=== PATIENT | female | born 1960 | race Caucasian/White ===

== ENCOUNTER 2021-02-14 11:30 | Inpatient (IN) | payer SELFPAY ==
[2021-02-14 12:04] LABS: Absolute Lymphocytes (CBC) 1.7 K/uL (0.7-4.9); Basophils % 0.9 % (0-1.3); Hematocrit 41.4 % (36.0-45.0); Lymphocytes % 17.4 % (15.3-44.8); MPV 9.9 fL (7.6-11.3); RBC Red Blood Cell Count 4.84 M/uL (3.86-4.86)
[2021-02-14 12:18] LABS: Protime INR 1.03
[2021-02-14 12:31] LABS: Urine Blood Trace-intact (Negative); Urine Glucose Negative (Negative); Urine Protein Negative (Negative); Urine Specific Gravity 1.015 (1.005-1.030)
[2021-02-14 12:33] LABS: BUN Blood Urea Nitrogen 14 mg/dL (7-18); Bicarbonate 22 mmol/L (21-32); Glucose Level 252 mg/dL (74-106); Potassium 3.9 mmol/L (3.5-5.1); Sodium Level 138 mmol/L (136-145); Troponin (Emerg Dept Use Only) < 0.02 ng/mL (0.0-0.045)
--- NOTE | 2021-02-14 12:51 | RAD REPORT ---
EXAM DESCRIPTION: CT - Ct Stroke Brain Wo Cont - 02/14/2021 12:39 pm CLINICAL HISTORY: Slurred speech;Numbness COMPARISON: No comparisonsNo comparisons TECHNIQUE: Axial 5 millimeter thick images of the head were obtained without IV contrast. All CT scans are performed using dose optimization technique as appropriate and may include automated exposure control or mA/KV adjustment according to patient size. FINDINGS: No intracranial hemorrhage, mass, or cerebral edema. No acute cortical based infarction id entified. No cortical edema or sulcal effacement. No extra-axial fluid collections. Velasquez matter-whit e matter differentiation is preserved.Patchy areas of diminished attenuation are seen in the cerebral white matter. An 8 millimeter area of CSF attenuation is present near the genu internal capsule. Thi s has the appearance of an old infarction. No significant atrophy changes present. Ventricles are nor mal in size. Visualized portions of the mastoid air cells, paranasal sinuses, and orbits are unremarkable. Findings telephoned to doctor Patriica 12:47 p.m. IMPRESSION: No intracranial hemorrhage identified. 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 Patchy chronic ischemic changes are seen in cerebral white matter.
[2021-02-14 12:53] LABS: Barbiturates NEGATIVE (NEGATIVE); Benzodiazepines NEGATIVE (NEGATIVE); Cocaine NEGATIVE (NEGATIVE); METHAMPHETAM NEGATIVE (NEGATIVE); Methadone NEGATIVE (NEGATIVE); Opiates NEGATIVE (NEGATIVE); Phencyclidine NEGATIVE (NEGATIVE); THC Cannibis NEGATIVE (NEGATIVE)
--- NOTE | 2021-02-14 12:53 | RAD REPORT ---
EXAM DESCRIPTION: CT - Head angio - 02/14/2021 12:39 pm CLINICAL HISTORY: SLURRED SPEECH TECHNIQUE: During dynamic enhancement using nonionic IV contrast, axial 1 millimeter thick images of the head were obtained. Sagittal and axial reconstruction images were generated using MIP technique and reviewed. All CT scans are performed using dose optimization technique as appropriate and may include automated exposure control or mA/KV adjustment according to patient size. COMPARISON: CT head same date FINDINGS: No aneurysm or vascular malformation identified. Major venous sinuses are patent. No stenosis, named branch occlusion, vasculitis or other significant vascular finding identifiable. Patient does have calcifications in the internal carotid artery ribeiro. This is not seen is causing a significant luminal narrowing. IMPRESSION: Negative CT angio head examination for acute significant finding.
--- NOTE | 2021-02-14 12:57 | RAD REPORT ---
EXAM DESCRIPTION: RAD - Chest Single View - 02/14/2021 12:18 pm CLINICAL HISTORY: slurred speech, Stroke protocol chest film COMPARISON: July 2017 TECHNIQUE: AP portable chest image was obtained 02/14/2021 12:18 pm . FINDINGS: Lungs are clear. Heart and vasculature are normal. No measurable pleural effusion and no p neumothorax. No acute bony abnormality seen. No acute aortic findings suspected. IMPRESSION: No acute cardiopulmonary process. No significant change from comparison study.
--- NOTE | 2021-02-14 13:06 | ER ---
Nurse's Notes [facility] Name: Liz Max Age: 60 yrs Sex: Female : 1960 Arrival Date: 02/14/2021 Time: 11:36 Bed 7 Private MD: Diagnosis: Paresthesia of skin;Altered mental status, unspecified;Urinary tract infection, site not specified Presentation: 02/14 11:36 Chief complaint: EMS states: Pt c/o difficulty walking, weakness, tingling and numbness ph all over, and slurred speech w/ sudden onset at approx 10 pm last night. Upon arrival to ED pt noted to be anxious, restless, able to move arms and legs, speech mildly slurred. 20 G IV to RFA. Coronavirus screen: Client denies travel out of the [place] in the last 14 days. At this time, the client does not indicate any symptoms associated with coronavirus-19. Ebola Screen: No symptoms or risks identified at this time. No acute neurological deficit is noted. The patients blood glucose was checked before arriving to the hospital and was found to be normal. Initial Sepsis Screen: Does the patient meet any 2 criteria? No. Patient's initial sepsis screen is negative. Does the patient have a suspected source of infection? No. Patient's initial sepsis screen is negative. Risk Assessment: Do you want to hurt yourself or someone else? Patient reports no desire to harm self or others. Onset of symptoms was February 14, 2021. 11:36 Method Of Arrival: EMS: [facility] 11:36 Acuity: ANTON 2 ph Stroke Activation: Symptom onset > 6 hours Physician: Stroke Attending; Name: ; Notified At: ; Arrived At: Physician: Chief Stroke Resident; Name: ; Notified At: ; Arrived At: Physician: Stroke Resident; Name: ; Notified At: ; Arrived At: Physician: ED Attending; Name: ; Notified At: ; Arrived At: Physician: ED Resident; Name: ; Notified At: ; Arrived At: Historical: - Allergies: 11:43 No Known Allergies; ph - Home Meds: 11:43 metformin 1,000 mg Oral TG24 1 tab 2 times per day [Active]; tramadol 50 mg Oral tab 1 ph tab every 6 hours [Active]; Hydrochlorothiazide Oral [Active]; Potassium Chloride Oral [Active]; - PMHx: 11:43 Diabetes - NIDDM; Chronic pain; Hypertension; ph - PSHx: 11:43 Hysterectomy; Lithotripsy; ph - Immunization history:: Adult Immunizations unknown. - Family history:: not pertinent. - Social history:: Smoking status: Patient reports the use of cigarette tobacco products, denies chronic smoking, but will smoke occasionally. - Hospitalizations: : No recent hospitalization is reported. Screenin:47 Abuse screen: Denies threats or abuse. Denies injuries from another. Nutritional ph screening: No deficits noted. Tuberculosis screening: No symptoms or risk factors identified. Fall Risk None identified. Assessment: 11:45 VAN Scoring: Arm Drift: Patients demonstrates NO arm weakness. Patient is VAN Negative. ph 12:00 General: Appears in no apparent distress. comfortable, Behavior is cooperative, ph anxious, fussy, restless, Denies fever, feeling ill. Pain: Complains of pain in right low back, reports that pain is chronic. Neuro: Level of Consciousness is awake, alert, obeys commands, Oriented to person, place, time, situation, C Engineer are equal bilaterally Moves all extremities. Gait is unsteady, Speech is slurred, Facial symmetry appears normal, Facial symmetry: tongue is midline, Pupils are PERRLA, Intact Reports numbness in right arm, left arm, right leg and left leg paresthesias in right arm, left arm, right leg and left leg weakness in "all over". Cardiovascular: Capillary refill < 3 seconds in bilateral fingers Patient's skin is warm and dry. Respiratory: Airway is patent Respiratory effort is even, unlabored. GI: No signs and/or symptoms were reported involving the gastrointestinal system. : No signs and/or symptoms were reported regarding the genitourinary system. Derm: Skin is intact, Skin is pink, warm \\T\\ dry. Musculoskeletal: Circulation, motion, and sensation intact. Range of motion: intact in all extremities. 12:15 Patient has been NPO before screening. The patient is alert, and able to follow ph commands. The patient does not exhibit slurred or garbled speech. The patient is not exhibiting difficulty speaking. The patient does not exhibit difficulty understanding words. The patient is able to swallow own secretions with no drooling or need for suction. Patient tolerated one teaspoon of water. No drooling, immediate coughing, gurgling, or clearing of the throat was noted. The patient tolerated 90mL of water. No drooling, immediate coughing, gurgling, or clearing of the throat was noted. The patient passed the bedside swallow screening. Oral medications may be given as ordered. Contact Physician for further diet orders. 12:15 Provider notified of bedside swallow screening results: Narciso Gomez MD. T-PA (Activase) ph Screening: Contraindications: Patient reports onset of signs and symptoms of stroke greater than 6 hours ago:. 13:41 Reassessment: Patient appears in no apparent distress at this time. Patient and/or ph family updated on plan of care and expected duration. Pain level reassessed. Dr Styles at bedside to speak w/ pt and , pt's speech clearer, does not appear to be having difficulty pronouncing words, noted to be moving all extremities w/ no difficulty, assisted pt to restroom, pt unsteady when initially standing but able to ambulate to toilet w/ no difficulty. 13:48 Reassessment: While speaking w/ hospitalist pt reports having multiple stressors in her ph life currently, speech remains clear, pt A\\T\\O x 4 at this time. 15:54 Reassessment: Patient appears in no apparent distress at this time. Patient and/or ph family updated on plan of care and expected duration. Pain level reassessed. Patient is alert, oriented x 3, equal unlabored respirations, skin warm/dry/pink. Pt sitting up in bed, eating burger, tolerating well, at bedside, awaiting room assignment. 16:49 Reassessment: Patient appears in no apparent distress at this time. Patient and/or ph family updated on plan of care and expected duration. Pain level reassessed. Patient is alert, oriented x 3, equal unlabored respirations, skin warm/dry/pink. Vital Signs: 11:36 BP 148 / 102; Pulse 94; Resp 18; Pulse Ox 99% on R/A; ph 12:09 Temp 97.4(TE); Weight 70.31 kg; Height 5 ft. 2 in. (157.48 cm); ph 13:00 BP 141 / 103; Pulse 87; Resp 18; Pulse Ox 99% on R/A; ph 14:23 BP 139 / 113; Pulse 78; Resp 18; Pulse Ox 98% on R/A; ph 15:30 BP 142 / 107; Pulse 75; Resp 18; Pulse Ox 98% on R/A; ph 16:17 BP 132 / 101; Pulse 76; Resp 18; Temp 97.9; Pulse Ox 98% on R/A; ph 12:09 Body Mass Index 28.35 (70.31 kg, 157.48 cm) ph NIH Stroke Scale Scores: 11:45 NIHSS Score: 0 ph ED Course: 11:36 Patient arrived in ED. ph 11:41 Triage completed. ph 11:41 Arm band placed on Patient placed in an exam room, on a stretcher, on monitoring and evaluation advisor, ph on pulse oximetry. 11:42 Narciso Gomez MD is Attending Physician. rn 11:49 Donna Rojas RN is Primary Nurse. ph 12:00 Patient has correct armband on for positive identification. Bed in low position. Call ph light in reach. Side rails up X2. phototypesetting equipment monitor on. Pulse ox on. NIBP on. Door closed. Noise minimized. Warm blanket given. 12:00 Maintain EMS IV. Dressing intact. Good blood return noted. Site clean \\T\\ dry. Gauge \\T\\ ph site: 2 RFA. IV is patent, with fluids infusing freely, with good blood return, Flushed right forearm with 5 ml normal saline. 12:18 Stroke CXR 1 View In Process Unspecified. EDMS 12:39 CT Stroke Brain w/o Contrast In Process Unspecified. EDMS 12:39 CT Head Angio In Process Unspecified. EDMS 13:05 Mehdi Styles DO is Hospitalizing Provider. rn 14:23 No provider procedures requiring assistance completed. Patient admitted, IV remains in ph place. Administered Medications: 15:30 Drug: Rocephin (cefTRIAXone) 1 grams Route: IV; Rate: calculated rate; Site: right ph forearm; 16:00 Follow up: Response: No adverse reaction; IV Status: Completed infusion ph Outcome: 13:05 Decision to Hospitalize by Provider. rn 16:49 Admitted to Med/surg accompanied by tech, family with patient, via wheelchair, room ph 429, with chart, Report called to CARILTOS Kaur 16:49 Condition: good 16:49 Instructed on the need for admit. 16:51 Patient left the ED. ph NIH Stroke Scale - NIH Stroke Score Date: 02/14/2021 Time: 11:45 Total Score = 0 1a. Level of Consciousness (LOC) - 0(Alert) 1b. Level of Consciousness (LOC) (Year \\T\\ Age) - 0(Both) 1c. LOC Commands (Open \\T\\ Closes Eyes/Chemical Plant Manager) - 0(Both) 2. Best Gaze (Lateral Gaze Paresis) - 0(Normal) 3. Visual Field Loss - 0(No visual loss) 4. Facial Palsy - 0(Normal) 5a. Left Arm: Motor (10-second hold) - 0(No drift) 5b. Right Arm: Motor (10-second hold) - 0(No drift) 6a. Left Leg: Motor (5-second hold - always test supine) - 0(No drift) 6b. Right Leg: Motor (5-second hold - always test supine) - 0(No drift) 7. Limb Ataxia (finger/nose \\T\\ heel/bowen - test with eyes open) - 0(Absent) 8. Sensory Loss (pinprick arms/legs/face) - 0(Normal) 9. Best Language: Aphasia (description/naming/reading) - 0(No aphasia) 10. Dysarthria (speech clarity - read or repeat words) - 0(Normal) 11. Extinction and Inattention (visual/tactile/auditory/spatial/personal) - 0(No abnormality) Initials: ph Signatures: Dispatcher [employer] Narciso Scott MD MD rn Hall, Patricia, RN RN ph Corrections: (The following items were deleted from the chart) 11:49 11:36 Pulse 94bpm; Resp 18bpm; Pulse Ox 99% RA; ph ph
--- NOTE | 2021-02-14 13:07 | EDPHYS ---
Physician Documentation [facility] Name: Liz Max Age: 60 yrs Sex: Female : 1960 Arrival Date: 02/14/2021 Time: 11:36 Bed 7 Private MD: ED Physician Narciso Gomez HPI: 02/14 12:31 This 60 yrs old Female presents to ER via EMS with complaints of General rn Weakness, Slurred Speech. 12:31 The patient presents to the emergency department with a speech or higher order brain rn function problem, paresthesias of the left lower extremity, left upper extremity. Onset: The symptoms/episode began/occurred last night. Context: occurred at home, occurred while the patient was at rest. Associated signs and symptoms: Pertinent positives: headache, paresthesias, weakness, Pertinent negatives: fever, neck stiffness, seizure. Severity of symptoms: At their worst the symptoms were moderate in the emergency department the symptoms are unchanged. The patient has not experienced similar symptoms in the past. The patient has not recently seen a physician. Reports last night around 10 PM was coloring, noticed whole body became numb, noticed difficulty speaking clearly, and "couldn't control body". No head injury or trauma. No recent medication changes, states has never happened before, but is not acting herself. Pt very frustrated and obvious speech problem. . Historical: - Allergies: 11:43 No Known Allergies; ph - Home Meds: 11:43 metformin 1,000 mg Oral TG24 1 tab 2 times per day [Active]; tramadol 50 mg Oral tab 1 ph tab every 6 hours [Active]; Hydrochlorothiazide Oral [Active]; Potassium Chloride Oral [Active]; - PMHx: 11:43 Diabetes - NIDDM; Chronic pain; Hypertension; ph - PSHx: 11:43 Hysterectomy; Lithotripsy; ph - Immunization history:: Adult Immunizations unknown. - Family history:: not pertinent. - Social history:: Smoking status: Patient reports the use of cigarette tobacco products, denies chronic smoking, but will smoke occasionally. - Hospitalizations: : No recent hospitalization is reported. ROS: 12:31 Constitutional: Negative for fever, chills, and weight loss, Eyes: Negative for injury, rn pain, redness, and discharge, Neck: Negative for injury, pain, and swelling, Cardiovascular: Negative for chest pain, palpitations, and edema, Respiratory: Negative for shortness of breath, cough, wheezing, and pleuritic chest pain, Abdomen/GI: Negative for abdominal pain, nausea, vomiting, diarrhea, and constipation, Back: Negative for injury : Negative for injury, bleeding, discharge, and swelling, MS/Extremity: Negative for injury and deformity, Skin: Negative for injury, rash, and discoloration, Neuro: Negative for seizure Exam: 12:31 Constitutional: This is a well developed, well nourished patient who is awake, alert, rn tearful, sitting upright with legs crossed, flailing her body around. Head/Face: Normocephalic, atraumatic. Eyes: Periorbital areas with no swelling, redness, or edema. Cardiovascular: Regular rate and rhythm. No pulse deficits. Respiratory: No increased work of breathing, no retractions or nasal flaring. Abdomen/GI: soft, non-tender Skin: Warm, dry MS/ Extremity: Pulses equal, no cyanosis. Neuro: Awake and alert, GCS 15, oriented to person, place, time, and situation. Cranial nerves II-XII grossly intact. Motor strength 5/5 in all extremities. + decreased sensation to soft touch and sharp prick left face/left arm/left leg. Vital Signs: 11:36 BP 148 / 102; Pulse 94; Resp 18; Pulse Ox 99% on R/A; ph 12:09 Temp 97.4(TE); Weight 70.31 kg; Height 5 ft. 2 in. (157.48 cm); ph 13:00 BP 141 / 103; Pulse 87; Resp 18; Pulse Ox 99% on R/A; ph 14:23 BP 139 / 113; Pulse 78; Resp 18; Pulse Ox 98% on R/A; ph 15:30 BP 142 / 107; Pulse 75; Resp 18; Pulse Ox 98% on R/A; ph 16:17 BP 132 / 101; Pulse 76; Resp 18; Temp 97.9; Pulse Ox 98% on R/A; ph 12:09 Body Mass Index 28.35 (70.31 kg, 157.48 cm) ph NIH Stroke Scale Scores: 11:45 NIHSS Score: 0 ph MDM: 11:42 Patient medically screened. rn 13:04 ED course: Pt revisited after neg ct/ct angio, clear speech, now states right side of rn body is numb and tingling. Does not seem to be CVA with resolving speech and paresthesias jumping side to side, at some times, when distracted, body movements and speech normal without deficit. + UTI, will treat and admit to Dr. Styles with neuro consult. . 02/14 11:44 Order name: UDS; Complete Time: 12:54 02/14 11:44 Order name: Troponin (emerg Dept Use Only); Complete Time: 12:54 02/14 11:44 Order name: Basic Metabolic Panel; Complete Time: 12:54 02/14 11:44 Order name: CBC with Diff; Complete Time: 12:54 02/14 11:44 Order name: Protime (+inr); Complete Time: 12:54 02/14 11:44 Order name: Ptt, Activated; Complete Time: 12:54 02/14 11:44 Order name: CT Stroke Brain w/o Contrast; Complete Time: 12:54 02/14 11:44 Order name: Stroke CXR 1 View; Complete Time: 13:06 02/14 11:44 Order name: CT Head Angio; Complete Time: 12:54 02/14 12:26 Order name: CREATININE WHOLE BLOOD; Complete Time: 12:54 [facility] 02/14 12:30 Order name: Urine Dipstick-Ancillary; Complete Time: 12:54 [facility] 02/14 13:53 Order name: COVID-19 : Document "Date of Symptom Onset" if Symptomatic. aa5 02/14 15:42 Order name: SARS-COV-2 RT PCR EDDC 02/14 11:44 Order name: EKG; Complete Time: 11:45 rn 02/14 11:44 Order name: Accucheck; Complete Time: 12:34 rn 02/14 11:44 Order name: Cardiac monitoring; Complete Time: 12:34 02/14 11:44 Order name: EKG - Nurse/Tech; Complete Time: 14:24 02/14 11:44 Order name: IV Saline Lock; Complete Time: 12:33 rn 02/14 11:44 Order name: Labs collected and sent; Complete Time: 12:33 rn 02/14 11:44 Order name: NPO; Complete Time: 12:33 rn 06/12 11:44 Order name: O2 Per Protocol; Complete Time: 12:33 rn 02/14 11:44 Order name: O2 Sat Monitoring; Complete Time: 12:33 rn 02/14 11:44 Order name: Stroke Swallow Screen; Complete Time: 12:33 rn Administered Medications: 15:30 Drug: Rocephin (cefTRIAXone) 1 grams Route: IV; Rate: calculated rate; Site: right ph forearm; 16:00 Follow up: Response: No adverse reaction; IV Status: Completed infusion ph Disposition: 02/14/21 13:05 Hospitalization ordered by Mehdi Styles for Observation. Preliminary diagnosis are Paresthesia of skin, Altered mental status, unspecified, Urinary tract infection, site not specified. - Bed requested for Telemetry/MedSurg (observation). - Status is Observation. ph - Condition is Stable. - Problem is new. - Symptoms have improved. NIH Stroke Scale - NIH Stroke Score Date: 02/14/2021 Time: 11:45 Total Score = 0 1a. Level of Consciousness (LOC) - 0(Alert) 1b. Level of Consciousness (LOC) (Year \\T\\ Age) - 0(Both) 1c. LOC Commands (Open \\T\\ Closes Eyes/First Breaker Feeder) - 0(Both) 2. Best Gaze (Lateral Gaze Paresis) - 0(Normal) 3. Visual Field Loss - 0(No visual loss) 4. Facial Palsy - 0(Normal) 5a. Left Arm: Motor (10-second hold) - 0(No drift) 5b. Right Arm: Motor (10-second hold) - 0(No drift) 6a. Left Leg: Motor (5-second hold - always test supine) - 0(No drift) 6b. Right Leg: Motor (5-second hold - always test supine) - 0(No drift) 7. Limb Ataxia (finger/nose \\T\\ heel/bowen - test with eyes open) - 0(Absent) 8. Sensory Loss (pinprick arms/legs/face) - 0(Normal) 9. Best Language: Aphasia (description/naming/reading) - 0(No aphasia) 10. Dysarthria (speech clarity - read or repeat words) - 0(Normal) 11. Extinction and Inattention (visual/tactile/auditory/spatial/personal) - 0(No abnormality) Initials: ph Signatures: Dispatcher [employer] EDMS Narciso Gomez MD MD rn Hall, Patricia, RN RN ph Peggy Simms Corrections: (The following items were deleted from the chart) 14:34 13:54 CORONAVIRUS ordered. [facility] 16:10 13:05 Hospitalization Ordered by Mehdi Styles DO for Observation. Preliminary eb diagnosis is Paresthesia of skin; Altered mental status, unspecified; Urinary tract infection, site not specified. Bed requested for Telemetry/MedSurg (observation). Status is Observation. Condition is Stable. Problem is new. Symptoms have improved. rn 16:51 16:10 02/14/2021 13:05 Hospitalization Ordered by Mehdi Styles DO for ph Observation. Preliminary diagnosis is Paresthesia of skin; Altered mental status, unspecified; Urinary tract infection, site not specified. Bed requested for Telemetry/MedSurg (observation). Status is Observation. Condition is Stable. Problem is new. Symptoms have improved. eb
--- NOTE | 2021-02-14 14:17 | P.HP ---
Certification for Inpatient Patient admitted to: Observation With expected LOS: <2 Midnights Patient will require the following post-hospital care: None Practitioner: I am a practitioner with admitting privileges, knowledge of patient current condition, hospital course, and medical plan of care. Services: Services provided to patient in accordance with Admission requirements found in Title 42 Section 412.3 of the Code of Federal Regulations Patient History Date of Service: 02/14/21 Primary Care Provider: Dr. Hannah([place], [place]) Reason for admission: AMS History of Present Illness: 60 yo female with history of hypertension, diabetes and chronic pain. Patient presented to emergency room with altered mental status changes and all other complaints including muscle weakness, numbness, and expressive aphasia. Patient reports that she was doing some adult coloring last night. When she got up to go the bathroom she felt very weak. She felt like a "puppet" with her movements. She fell very floppy. She reported some weakness to the right side. She was able to get back to bed after that. She did not sleep well all night. She has not been getting adequate rest as well. Then this morning she reported some further weakness, episodes of expressive aphasia, numbness that would come and go, and mild headache. EMS was called to further evaluate. Patient denied any chest pain, shortness of breath, fever, chills. In the ER patient was evaluated. Initial lab showed normal white count of 9.6, hemoglobin 14. Platelet count 214. Sodium 138, potassium 3.9 care. Being of 14, creatinine 1.03 with a GFR 55. Glucose 252. Troponin negative. Urinalysis was positive for UTI. CT angiogram of the head unremarkable. CT without contrast showed no acute intracranial hemorrhage. Small old infarct near the genu internal capsule on the left side. Patchy chronic ischemic changes were noted in the cerebral white matter. ER reports patient had some episodes of numbness, expressive aphasia, and floppiness. Episodes lasted for seconds and resolved. I was asked to evaluate and possibly admit patient for further evaluation. When I saw the patient in the ER, she continued to have some episodes of expressive aphasia, floppiness in her extremities, and weakness. Episodes lasted for seconds then resolves. Patient has had increased stress. Stress includes poor financial status, she currently lives in a large trailer, she is away from family at times, sister recently diagnosed with pancreatic cancer, and further reports mother seizure disorder. No suicidal ideation noted. reports patient has been under some stress. No changes in her medications noted. She does not drink or use any drugs. Patient has not had any restful sleep over the past several days. She has been tried on multiple blood pressure medications which have caused increased fatigue. Allergies No Known Allergies Allergy (Unverified 08/02/17 00:01) Home medications list reviewed: Yes Home Medications: Metformin HCl 1 pill PO BID 08/02/17 Tramadol HCl [Ultram] 50 mg PO DAILY PRN 08/02/17 glyBURIDE [Glyburide] 1 pill PO DAILY 08/02/17 Ciprofloxacin HCl [Cipro 500 MG Tablet] 500 mg PO BID #14 tab 08/03/17 - Past Medical/Surgical History Diabetic: Yes -: Diabetes mellitus type 2 -: Hypertension -: Restless leg syndrome -: Chronic pain -: Hysterectomy 2005 -: Lithotripsy Psychosocial/ Personal History: Patient is - Family History Father -: Diabetes, Other (see notes) Notes: Mesothelioma Mother -: Kidney disease, Other (see notes) (Seizure disorder) Notes: Lupus, Rheumatoid arthritis - Social History Smoking Status: Never smoker Alcohol use: No CD- Drugs: No Caffeine use: Yes Place of Residence: Home Review of Systems General: Weakness, As per HPI Eyes: Unremarkable ENT: Unremarkable Respiratory: Unremarkable Cardiovascular: Unremarkable Gastrointestinal: Unremarkable Genitourinary: Frequency, Urgency, As per HPI Musculoskeletal: As per HPI Integumentary: Unremarkable Neurological: As per HPI Lymphatics: Unremarkable Physical Examination - Physical Exam General: Alert, In no apparent distress, Oriented x3, Cooperative HEENT: Atraumatic Neck: Supple Respiratory: Clear to auscultation bilaterally, Normal air movement Cardiovascular: Normal pulses, Regular rate/rhythm Gastrointestinal: Normal bowel sounds, Soft and benign, Non-distended, No tenderness, No masses, No rebound, No guarding Musculoskeletal: No erythema, No tenderness, No warmth Integumentary: No tenderness/swelling, Other (Dry skin) Neurological: Normal speech, Normal strength at 5/5 x4 extr, Normal tone, Normal affect, Other (Patient has good strength overall. No focal deficits noted. During the course of my examination she had periods of expressive aphasia, weakness, numbness to multiple extremities. These episodes lasted for seconds then she would return back to normal. This happened about 3-4 times. ) Other Physical/Emotional Findings: Patient reports increased stress at home. Increase anxiety noted. Mood appeared very labile. - Studies Laboratory Data (last 24 hrs) 02/14/21 11:55: PT 11.8, INR 1.03, APTT 27.7 02/14/21 11:55: WBC 9.60, Hgb 14.0, Hct 41.4, Plt Count 214 02/14/21 11:55: Sodium 138, Potassium 3.9, BUN 14, Creatinine 1.03, Glucose 252 H Assessment and Plan - Plan Impression: Altered mental status with episodes of numbness, weakness, expressive aphasia suspect pseudoseizures UTI Acute renal injury with dehydration Hypertension Diabetes mellitus type 2 CT evidence of small old infarct near the genu internal capsule on the left Suspect depression with anxiety with increased stress Plan: Altered mental status with episodes of numbness, weakness, expressive aphasia suspect pseudoseizures: Patient will be admitted for further evaluation and treatment. Case discussed in detail with Neurology. CT scan show no evidence of acute hemorrhagic care acute stroke. Prior old stroke noted. Neurology suspects no acute stroke or TIA at this time. Due to her increased stressors at home, UTI, acute renal injury with dehydration and hypertension, neurology suspects this may be related to underlying pseudoseizures versus seizures versus other. Neurology recommends to start Depakote 250 mg daily for mood stabilization and possible underlying pseudoseizures verses seizure. Will treat her UTI. Urine and blood cultures obtained. Will also provide IV fluid bolus and continue IV fluids. Lovenox DVT prophylaxis to be initiated. Will need to get her diabetes and blood pressure better controlled. Fall, seizure precaution and aspiration precaution in place. Will have physical therapy occupational therapy evaluate patient tomorrow. Will continue to monitor and assess. Anticipate improvement over the next 24 hr with likely discharge tomorrow. UTI: Continue Rocephin. Blood in urine cultures obtained. Continue IV fluids. Acute renal injury with dehydration: Continue IV fluids. Electrolyte protocol in place. Hypertension: Restart hydrochlorothiazide at night. Provide other medication if blood pressure elevated. Will monitor this closely. Patient has filled 3 other medications due to increased fatigue. Will monitor this closely. Diabetes mellitus type 2: Will provide insulin sliding scale. Obtain hemoglobin A1c. CT evidence of small old infarct near the genu internal capsule on the left: No acute stroke noted at this time. This was discussed in detail with Neurology. This area the brain would effect right lower extremity weakness. No significant evidence of this. Will continue as above. Suspect depression with anxiety with increased stress: Increased stressors noted. Continue with above plan of care. Will start Depakote for mood stabilization. Will provide Ativan as needed. Discharge Plan: Home Plan to discharge in: 24 Hours - Advance Directives Does patient have a Living Will: No Does patient have a Durable POA for Healthcare: No - Code Status/Comfort Care Code Status Assessed: Yes (Patient is full code) Time Spent Managing Pts Care (In Minutes): 55
[2021-02-14] MEDS ORDERED: CEFTRIAXONE/SWI 1gm 1 GM/10 ML SYR ONE (15:22)
[2021-02-14] MEDS ORDERED: NA CHLORIDE 0.9% 50 ML ONE (15:22)
[2021-02-14] MEDS ORDERED: ACETAMINOPHEN 500 MG TAB PO PRN (16:27)
[2021-02-14] MEDS ORDERED: TRAMADOL HCL 50 MG TAB PO PRN (16:27)
[2021-02-14] MEDS ORDERED: METOPROLOL TARTRATE 5 MG/5 ML INJ IV PRN (16:27)
[2021-02-14] MEDS ORDERED: NA CHLORIDE 0.9% 500 ML IV ONE (16:27)
[2021-02-14] MEDS: VALPROATE SODIUM INJ 250 MG in NA CHLORIDE 0.9% 100 ML IV SCH (16:27)
[2021-02-14] MEDS ORDERED: ONDANSETRON 4 MG/2 ML VIAL IV PRN (16:27)
[2021-02-14] MEDS: INSULIN -REGULAR HUMAN 50 UNIT/0.5 ML ML SQ SCH ×2 (16:30→20:23)
[2021-02-14 17:03] VITALS: BMI 27.6
[2021-02-14] MEDS: NA CHLORIDE 0.9% 1,000 ML IV SCH (17:35)
[2021-02-14] MEDS ORDERED: NA CHLORIDE 0.9% 100 ML ONE (18:38)
[2021-02-14] MEDS ORDERED: VALPROATE NA 500 MG/5 ML INJ IV ONE (18:38)
[2021-02-14] MEDS: LORazepam 2 MG/ML VIAL IV PRN (20:22)
[2021-02-14] MEDS ORDERED: hydroCHLOROthiazide 25 MG TAB PO SCH (21:00)
[2021-02-14] MEDS ORDERED: TRAMADOL HCL 50 MG TAB PO ONE (21:40)
[2021-02-15] MEDS: NA CHLORIDE 0.9% 1,000 ML IV SCH (00:31)
[2021-02-15] MEDS: LORazepam 2 MG/ML VIAL IV PRN ×2 (04:13→11:35)
[2021-02-15 04:55] LABS: Absolute Lymphocytes (CBC) 3.5 K/uL (0.7-4.9); Basophils % 0.6 % (0-1.3); Hematocrit 37.8 % (36.0-45.0); Lymphocytes % 36.5 % (15.3-44.8); MPV 10.2 fL (7.6-11.3); RBC Red Blood Cell Count 4.42 M/uL (3.86-4.86)
[2021-02-15 05:11] LABS: Magnesium 2.1 mg/dL (1.8-2.4); Potassium 3.9 mmol/L (3.5-5.1); Thyroid Stimulating Hormone 2.09 uIU/mL (0.360-3.740)
[2021-02-15] MEDS ORDERED: carvediloL 3.125 MG TAB PO SCH (06:00)
--- NOTE | 2021-02-15 06:11 | P.DS ---
Admission Date: 02/14/21 Discharge Date: 02/15/21 Primary Care Provider: Dr. Hannah([place], [place]) Disposition: ROUTINE DISCHARGE Discharge Condition: GOOD Reason for Admission: AMS Consultations: Neurology(Phone consultation) Procedures: COVID: Negative CT Head: FINDINGS: No intracranial hemorrhage, mass, or cerebral edema. No acute cortical based infarction identified. No cortical edema or sulcal effacement. No extra-axial fluid collections. Velasquez matter-white matter differentiation is preserved.Patchy areas of diminished attenuation are seen in the cerebral white matter. An 8 millimeter area of CSF attenuation is present near the genu internal capsule. This has the appearance of an old infarction. No significant atrophy changes present. Ventricles are normal in size. Visualized portions of the mastoid air cells, paranasal sinuses, and orbits are unremarkable. IMPRESSION: No intracranial hemorrhage identified. 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 Patchy chronic ischemic changes are seen in cerebral white matter. CTA Head: COMPARISON: CT head same date FINDINGS: No aneurysm or vascular malformation identified. Major venous sinuses are patent. No stenosis, named branch occlusion, vasculitis or other significant vascular finding identifiable. Patient does have calcifications in the internal carotid artery ribeiro. This is not seen is causing a significant luminal narrowing. IMPRESSION: Negative CT angio head examination for acute significant finding. CXR: COMPARISON: July 2017 TECHNIQUE: AP portable chest image was obtained 02/14/2021 12:18 pm . FINDINGS: Lungs are clear. Heart and vasculature are normal. No measurable pleural effusion and no pneumothorax. No acute bony abnormality seen. No acute aortic findings suspected. IMPRESSION: No acute cardiopulmonary process. No significant change from comparison study. Repeat CT Brain: FINDINGS: No intracranial hemorrhage, hydrocephalus or extra-axial fluid collection.Mild periventricular chronic microvascular ischemic changes with evidence of old lacunar infarcts bilaterally.No areas of brain edema or evidence of midline shift. The paranasal sinuses and mastoids are clear. The calvarium is intact. IMPRESSION: No acute or progressive intracranial abnormality. Medical problem list: Altered mental status with episodes of numbness, weakness, expressive aphasia suspect pseudoseizures versus underlying mental illness UTI Acute renal injury with dehydration Hypertension Hyperlipidemia Diabetes mellitus type 2 CT evidence of small old infarct near the genu internal capsule on the left Suspect bipolar disorder with increased stressors Brief History of Present Illness: 60 yo female with history of hypertension, diabetes and chronic pain. Patient presented to emergency room with altered mental status changes and all other complaints including muscle weakness, numbness, and expressive aphasia. Patient reports that she was doing some adult coloring last night. When she got up to go the bathroom she felt very weak. She felt like a "puppet" with her movements. She fell very floppy. She reported some weakness to the right side. She was able to get back to bed after that. She did not sleep well all night. She has not been getting adequate rest as well. Then this morning she reported some further weakness, episodes of expressive aphasia, numbness that would come and go, and mild headache. EMS was called to further evaluate. Patient denied any chest pain, shortness of breath, fever, chills. In the ER patient was evaluated. Initial lab showed normal white count of 9.6, hemoglobin 14. Platelet count 214. Sodium 138, potassium 3.9 care. Being of 14, creatinine 1.03 with a GFR 55. Glucose 252. Troponin negative. Urinalysis was positive for UTI. CT angiogram of the head unremarkable. CT without contrast showed no acute intracranial hemorrhage. Small old infarct near the genu internal capsule on the left side. Patchy chronic ischemic changes were noted in the cerebral white matter. ER reports patient had some episodes of numbness, expressive aphasia, and floppiness. Episodes lasted for seconds and resolved. I was asked to evaluate and possibly admit patient for further evaluation. When I saw the patient in the ER, she continued to have some episodes of expressive aphasia, floppiness in her extremities, and weakness. Episodes lasted for seconds then resolves. Patient has had increased stress. Stress includes poor financial status, she currently lives in a large trailer, she is away from family at times, sister recently diagnosed with pancreatic cancer, and further reports mother seizure disorder. No suicidal ideation noted. reports patient has been under some stress. No changes in her medications noted. She does not drink or use any drugs. Patient has not had any restful sleep over the past several days. She has been tried on multiple blood pressure medications which have caused increased fatigue. Hospital Course: Patient presented with multiple complaints including altered mental status, numbness, weakness, expressive aphasia. Patient was evaluated in the emergency room. CT scan showed no evidence of acute hemorrhagic stroke. CT did show a prior old stroke. CTA of the brain was unremarkable. Patient appeared dehydrated with acute renal injury and UTI. Patient going through a lot of stress at home including financial stress, sister with new diagnosis of cancer, and family dysfunction. Case discussed in detail with Neurology. Symptoms did not indicate any acute CVA, TIA, or active seizure. The patient was observed Overnite. Patient received IV fluids with improvement. Patient also was started on Depakote for mood stabilization. Repeat CT head unremarkable. Patient reported not sleeping well at night. She did receive some Ativan with some improvement. At discharge patient will continue with Depakote 250 mg daily. The patient will also be given a limited supply of Ativan 0.5 mg at bedtime as needed for insomnia. The patient will also take folic acid 1 mg daily. Recommend for the patient to follow up with neurology within 1 week to follow up this hospitalization. Patient should have outpatient MRI and EEG to further evaluate. This can be done with the help of Neurology. With her history of a prior stroke it is recommended that the patient continue with aspirin 81 mg daily, Lipitor 10 mg daily, and blood pressure control with hydrochlorothiazide 25 mg daily. Patient should she establish care with a local PCP to follow up this hospitalization. Recommend follow up with PCP in 1 week. Patient gets most of her care up [place]. I will try to reach out to her PCP prior to discharge. I will further recommend that the patient be evaluated by psychiatry as an outpatient as the patient may have underlying bipolar disorder. Patient may need to see [facility] their evaluation. Fall precautions in place. Patient found to have a mild UTI. Pro calcitonin negative. Patient was given IV antibiotic therapy and IV fluids. At discharge patient will continue with Augmentin 500 mg 1 pill twice daily for 5 days. UTI prevention provided. Patient with hypertension. Blood pressure is not well controlled. Patient has taking multiple medications in the past status caused low blood pressure. She is currently taking hydrochlorothiazide. At discharge will recommend to increase hydrochlorothiazide to 25 mg daily. Patient will continue with potassium supplementation as well. Recommend to monitor blood pressure daily. Recommend to maintain blood pressure less than 130/80. If blood pressures remain above 140/90 patient will likely require additional medication. This can be done with the help of her PCP. Recommend follow up with her PCP to further monitor her blood pressure and adjust medication appropriately. Patient with diabetes mellitus type 2. Hemoglobin A1c 7.0. At discharge she may continue with metformin 1 pill twice daily. Recommend to maintain blood sugar less than 140 fasting and less than 200 after meals. Further adjustment can be done by her PCP. Recommend to recheck hemoglobin A1c every 3 months to monitor her progress. Patient with hyperlipidemia. LDL elevated. With her history of diabetes, hypertension and prior stroke it is recommended that she start medication. At discharge she will continue with Lipitor 10 mg daily. Recommend to recheck fasting lipid panel in 4-6 weeks to monitor her progress. Further adjustment in medication can be done by her PCP. Patient with increased stress at home. Patient likely with underlying bipolar disorder. As meet recommended above patient will start Depakote 250 mg daily for mood stabilization. Patient will also be given a limited supply of Ativan 0.5 mg at bedtime for insomnia. Recommend to establish care with psychiatry to further evaluate and treat. Will provide resource is to [facility]. . Vital Signs/Physical Exam: Temp Pulse Resp BP Pulse Ox 97.3 F 79 17 170/95 H 95 02/15/21 04:00 02/15/21 04:00 02/15/21 04:00 02/15/21 04:00 02/15/21 04:00 General: Alert, In no apparent distress, Oriented x3, Cooperative HEENT: Atraumatic Neck: Supple Respiratory: Clear to auscultation bilaterally, Normal air movement Cardiovascular: Normal pulses, Regular rate/rhythm Gastrointestinal: Normal bowel sounds, No tenderness, No masses, No rebound, No guarding Musculoskeletal: No erythema, No tenderness, No warmth Integumentary: No tenderness/swelling Neurological: Normal speech, Normal strength at 5/5 x4 extr, Normal tone, Abnormal affect Other Physical/Emotional Findings: Patient reports increased stress at home. Increase anxiety noted. Mood appeared very labile. Laboratory Data at Discharge: WBC 9.70 K/uL (4.3-10.9) 02/15/21 03:51 Hgb 12.9 g/dL (12.0-15.0) 02/15/21 03:51 Hct 37.8 % (36.0-45.0) 02/15/21 03:51 Plt Count 197 K/uL (152-406) 02/15/21 03:51 PT 11.8 SECONDS (9.5-12.5) 02/14/21 11:55 INR 1.03 02/14/21 11:55 APTT 27.7 SECONDS (24.3-36.9) 02/14/21 11:55 Sodium 141 mmol/L (136-145) 02/15/21 03:51 Potassium 3.9 mmol/L (3.5-5.1) 02/15/21 03:51 BUN 16 mg/dL (7-18) 02/15/21 03:51 Creatinine 0.88 mg/dL (0.55-1.3) 02/15/21 03:51 Glucose 178 mg/dL (74-106) H 02/15/21 03:51 Magnesium 2.1 mg/dL (1.8-2.4) 02/15/21 03:51 Triglycerides 276 mg/dL (<150) H 02/15/21 03:51 Cholesterol 206 mg/dL (<200) H 02/15/21 03:51 HDL Cholesterol 36 mg/dL (40-60) L 02/15/21 03:51 Cholesterol/HDL Ratio 5.72 02/15/21 03:51 Home Medications: Metformin HCl 1,000 mg PO BIDWM 02/14/21 Potassium Gluconate [Potassium] 99 mg PO DAILY 02/14/21 Amox/Clavulanate [Augmentin 500-125 mg Tab*] 500 mg PO BID #10 tab 02/15/21 Aspirin [Aspirin EC 81 MG] 81 mg PO DAILY #30 tablet. 02/15/21 Atorvastatin Calcium [Lipitor] 10 mg PO BEDTIME #30 tab 02/15/21 Divalproex Sodium [Depakote ER] 250 mg PO DAILY #30 tab.er.24h 02/15/21 Folic Acid 1 mg PO DAILY #30 tablet 02/15/21 LORazepam [Ativan] 0.5 mg PO BEDTIME PRN #5 tab 02/15/21 hydroCHLOROthiazide [Hydrochlorothiazide] 25 mg PO DAILY #30 tablet 02/15/21 New Medications: Aspirin [Aspirin EC 81 MG] 81 mg PO DAILY #30 tablet. LORazepam [Ativan] 0.5 mg PO BEDTIME PRN #5 tab PRN Reason: Insomnia Amox/Clavulanate [Augmentin 500-125 mg Tab*] 500 mg PO BID #10 tab Divalproex Sodium [Depakote ER] 250 mg PO DAILY #30 tab.er.24h Folic Acid 1 mg PO DAILY #30 tablet hydroCHLOROthiazide [Hydrochlorothiazide] 25 mg PO DAILY #30 tablet Atorvastatin Calcium [Lipitor] 10 mg PO BEDTIME #30 tab Physician Discharge Instructions: Patient presented with multiple complaints including altered mental status, numbness, weakness, expressive aphasia. Patient was evaluated in the emergency room. CT scan showed no evidence of acute hemorrhagic stroke. CT did show a prior old stroke. CTA of the brain was unremarkable. Patient appeared dehydrated with acute renal injury and UTI. Patient going through a lot of stress at home including financial stress, sister with new diagnosis of cancer, and family dysfunction. Case discussed in detail with Neurology. Symptoms did not indicate any acute CVA, TIA, or active seizure. The patient was observed Overnite. Patient received IV fluids with improvement. Patient also was started on Depakote for mood stabilization. Repeat CT head unremarkable. Patient reported not sleeping well at night. She did receive some Ativan with some improvement. At discharge patient will continue with Depakote 250 mg daily. The patient will also be given a limited supply of Ativan 0.5 mg at bedtime as needed for insomnia. The patient will also take folic acid 1 mg daily. Recommend for the patient to follow up with neurology within 1 week to follow up this hospitalization. Patient should have outpatient MRI and EEG to further evaluate. This can be done with the help of Neurology. With her history of a prior stroke it is recommended that the patient continue with aspirin 81 mg daily, Lipitor 10 mg daily, and blood pressure control with hydrochlorothiazide 25 mg daily. Patient should she establish care with a local PCP to follow up this hospitalization. Recommend follow up with PCP in 1 week. Patient gets most of her care up [place]. I will try to reach out to her PCP prior to discharge. I will further recommend that the patient be evaluated by psychiatry as an outpatient as the patient may have underlying bipolar disorder. Patient may need to see [facility] their evaluation. Fall precautions in place. Patient found to have a mild UTI. Pro calcitonin negative. Patient was given IV antibiotic therapy and IV fluids. At discharge patient will continue with Augmentin 500 mg 1 pill twice daily for 5 days. UTI prevention provided. Patient with hypertension. Blood pressure is not well controlled. Patient has taking multiple medications in the past status caused low blood pressure. She is currently taking hydrochlorothiazide. At discharge will recommend to increase hydrochlorothiazide to 25 mg daily. Patient will continue with potassium supplementation as well. Recommend to monitor blood pressure daily. Recommend to maintain blood pressure less than 130/80. If blood pressures remain above 140/90 patient will likely require additional medication. This can be done with the help of her PCP. Recommend follow up with her PCP to further monitor her blood pressure and adjust medication appropriately. Patient with diabetes mellitus type 2. Hemoglobin A1c 7.0. At discharge she may continue with metformin 1 pill twice daily. Recommend to maintain blood sugar less than 140 fasting and less than 200 after meals. Further adjustment can be done by her PCP. Recommend to recheck hemoglobin A1c every 3 months to monitor her progress. Patient with hyperlipidemia. LDL elevated. With her history of diabetes, hypertension and prior stroke it is recommended that she start medication. At discharge she will continue with Lipitor 10 mg daily. Recommend to recheck fasting lipid panel in 4-6 weeks to monitor her progress. Further adjustment in medication can be done by her PCP. Patient with increased stress at home. Patient likely with underlying bipolar disorder. As meet recommended above patient will start Depakote 250 mg daily for mood stabilization. Patient will also be given a limited supply of Ativan 0.5 mg at bedtime for insomnia. Recommend to establish care with psychiatry to further evaluate and treat. Will provide resource is to [facility]. . Diet: ADA Activity: Fall precautions Followup: NONE,NONE [Primary Care Provider] - Time spent managing pt's care (in minutes): 55
[2021-02-15] MEDS: INSULIN -REGULAR HUMAN 50 UNIT/0.5 ML ML SQ SCH ×2 (07:30→13:20)
[2021-02-15] MEDS ORDERED: ENOXAPARIN 40 MG/0.4 ML SQ SCH (09:00)
[2021-02-15] MEDS ORDERED: THIAMINE HCL 100 MG TABLET PO SCH (09:00)
[2021-02-15] MEDS ORDERED: CEFTRIAXONE/SWI 1gm 1 GM/10 ML SYR IV SCH (09:00)
[2021-02-15] MEDS ORDERED: FOLIC ACID 1 MG TABLET PO SCH (09:00)
[2021-02-15] MEDS ORDERED: POTASSIUM CL SA 10 MEQ TAB PO ONE (09:00)
[2021-02-15] MEDS ORDERED: ASPIRIN EC 81 MG TAB PO SCH (09:00)
[2021-02-15] MEDS ORDERED: AMOX/K CLAV 500 MG TAB PO SCH (09:00)
[2021-02-15 09:13] VITALS: O2SAT 93
[2021-02-15] MEDS: VALPROATE SODIUM INJ 250 MG in NA CHLORIDE 0.9% 100 ML IV SCH (10:46)
--- NOTE | 2021-02-15 10:48 | RAD REPORT ---
EXAM DESCRIPTION: CT - Head Brain Wo Cont - 02/15/2021 10:25 am CLINICAL HISTORY: AMS, possible pseudoseizures Headache, drowsiness COMPARISON: Head angio dated 02/14/2021; Ct Stroke Brain Wo Cont dated 02/14/2021 TECHNIQUE: All CT scans are performed using dose optimization technique as appropriate and may inclu de automated exposure control or mA/KV adjustment according to patient size. FINDINGS: No intracranial hemorrhage, hydrocephalus or extra-axial fluid collection.Mild periventric ular chronic microvascular ischemic changes with evidence of old lacunar infarcts bilaterally.No area s of brain edema or evidence of midline shift. The paranasal sinuses and mastoids are clear. The calvarium is intact. IMPRESSION: No acute or progressive intracranial abnormality.
[2021-02-15 13:10] VITALS: BP 171/93; TEMP 97.2
[2021-02-15] MEDS ORDERED: METFORMIN HCL 500 MG TAB PO SCH (17:00)
[2021-02-15] MEDS ORDERED: ATORVASTATIN 40 MG TAB PO SCH (21:00)
== END 2021-02-15 15:30 | disposition home or self-care (01) | DRG 683 ==
LOC: ER 11:30 → ERHOLD 13:57 → 4TH 16:25 → OBSVTOIN 20:30
PROVIDERS: ADMIT Family Medicine; ATTEND Family Medicine
DX: N17.9 Acute kidney failure, unspecified (principal); N39.0 Urinary tract infection, site not specified; R47.01 Aphasia; R41.82 Altered mental status, unspecified; E86.0 Dehydration; I10 Essential (primary) hypertension; E11.9 Type 2 diabetes mellitus without complications; E78.5 Hyperlipidemia, unspecified; F31.9 Bipolar disorder, unspecified; R53.1 Weakness; R56.9 Unspecified convulsions; Z86.73 Personal history of transient ischemic attack (TIA), and cerebral infarction without residual deficits; Z20.822 Contact with and (suspected) exposure to COVID-19
CPT/HCPCS: 36415; 70450; 70496; 71045; 80048; 80061; 80307; 81003; 82565; 82947; 83036; 83735; 84145; 84439; 84443; 84484; 85025; 85610; 85730; 96365; 97530; 99285; G0378; J0696; J1650; J7030; Q9967; U0003

== ENCOUNTER 2022-09-24 12:16 | Inpatient (IN) | payer SELFPAY ==
[2022-09-24 13:28] LABS: Absolute Lymphocytes (CBC) 0.4 K/uL (0.7-4.9); Hematocrit 37.7 % (36.0-45.0); Lymphocytes % 1.8 % (15.3-44.8); MCV 87.7 fL (80-100); MPV 9.3 fL (7.6-11.3)
[2022-09-24 13:34] LABS: Protime INR 1.21
[2022-09-24 13:55] LABS: AST/SGOT 8 U/L (15-37); Albumin 3.3 g/dL (3.4-5.0); Alkaline Phosphatase 48 U/L (45-117); BUN Blood Urea Nitrogen 14 mg/dL (7-18); Bicarbonate 25 mmol/L (21-32); Bilirubin Total 0.7 mg/dL (0.2-1.0); Glomerular Filtration Rate 43 ml/min (=/>90); Glucose Level 235 mg/dL (74-106); Lipase 37 U/L (73-393); Magnesium 1.6 mg/dL (1.6-2.4); Potassium 3.7 mmol/L (3.5-5.1); Protein, Total 7.4 g/dL (6.4-8.2); Sodium Level 135 mmol/L (136-145); Troponin High Sensitivity 4.7 pg/mL (<58.9)
--- NOTE | 2022-09-24 13:58 | RAD REPORT ---
EXAM DESCRIPTION: RAD - Chest Single View - 09/24/2022 1:49 pm CLINICAL HISTORY: syncope COMPARISON: Portable 02/14/2021 TECHNIQUE: AP portable chest image was obtained 09/24/2022 1:49 pm . FINDINGS: Lungs are clear. Heart and vasculature are normal. No measurable pleural effusion and no p neumothorax. No acute bony abnormality seen. No acute aortic findings suspected. IMPRESSION: No acute cardiopulmonary process. No significant change from comparison study.
[2022-09-24 14:02] LABS: ALT/SGPT < 10 U/L (13-56)
[2022-09-24 14:06] LABS: Urine Blood 2+ (Negative); Urine Glucose Negative (Negative); Urine Protein 3+ (Negative); Urine Specific Gravity >=1.030 (1.005-1.030); Urine pH 5.5 (5.0-7.0)
[2022-09-24 14:12] LABS: Urine Bacteria 20-50 /HPF (<20); Urine Mucus Slight /HPF (None Seen); Urine RBC 21-50 /HPF (None Seen); Urine WBC Clump Occasional /HPF (None Seen)
[2022-09-24 14:26] LABS: Blood Morphology Comment NOT SEEN (NOT SEEN); Platelet Estimate ADEQ
--- NOTE | 2022-09-24 14:44 | RAD REPORT ---
EXAM DESCRIPTION: CT - Abdomen Pelvis W Contrast - 09/24/2022 2:21 pm CLINICAL HISTORY: LLQ abdominal pain COMPARISON: Abdomen Pelvis W Contrast dated 08/01/2017 TECHNIQUE: Biphasic, helical CT imaging of the abdomen and pelvis was performed following 100 ml non -ionic IV contrast. Oral contrast: No. All CT scans are performed using dose optimization technique as appropriate and may include automated exposure control or mA/KV adjustment according to patient size. FINDINGS: No suspicious findings in the lung bases. The liver, spleen, and pancreas show no suspicious findings. Gallbladder and biliary tree are also wi thout suspicious finding. No hydronephrosis present. There are nonobstructing calyx calculi present in each kidney. No delayed renal function. However, there is patchy, heterogeneous enhancement in of the renal parenchyma, left greater than right and some mild stranding in the perinephric fat. Small benign cortical cyst seen in the posterior lower pole left kidney. Findings are concerning for bilateral pyelonephritis. Patient does have some atherosclerotic change in the aorta. Heterogeneous enhancement due to vascular comprom ise is felt be lower in likelihood. Correlation is needed with any clinical or laboratory findings of pyelonephritis. Urinary bladder is contracted. This accentuates the wall thickness and precludes accurate assessment for possible cystitis. Bladder calculus is not suspected. Uterus is absent. Ovaries are absent or atr ophic. No adrenal abnormalities. No dilated bowel loops or bowel wall thickening. Diverticulosis is very minimal. An acute GI process is not identifiable. No free air, free fluid or inflammatory stranding. No hernia, mass or bulky lymphadenopathy. Disc and bone degenerative changes are present. Disc disease is most pronounced at the L2-3 level. L5 pars defects are present without L5 subluxation abnormality. IMPRESSION: Heterogeneous, abnormal enhancement pattern of the bilateral renal parenchyma, left grea ter than right, suspicious for pyelonephritis. Perfusion abnormalities due to vascular compromise wou ld be a lesser consideration. Correlation is needed with any clinical or laboratory findings for pyel onephritis. Urinary bladder is fully contracted precluding assessment of cystitis. Uterus and ovaries appear to be absent. 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
--- NOTE | 2022-09-24 14:50 | RAD REPORT ---
EXAM DESCRIPTION: CT - CTHCSPWOC - 09/24/2022 2:21 pm CLINICAL HISTORY: fall, head and neck injury COMPARISON: No comparisons TECHNIQUE: Axial 5 mm thick images of the head were obtained. Axial 2 mm thick images of the cervic al spine were obtained with sagittal and coronal reconstruction images generated and reviewed. All CT scans are performed using dose optimization technique as appropriate and may include automated exposure control or mA/KV adjustment according to patient size. FINDINGS: No intracranial hemorrhage, mass, edema or acute intracranial finding. No suspicion for an acute cortical based infarction. No cortical edema or sulcal effacement. No significant atrophy moreno ges are present. Patient does have several areas of decreased attenuation in the bilateral basal gang aria and deep periventricular white matter of each frontal lobe typical for lacunar type infarctions. Patient's overall cerebral white matter chronic ischemic pattern is minimal. No extra-axial fluid col lections. Mastoid air cells and paranasal sinuses are clear. No globe or orbit abnormality seen. Akila rial tree calcifications are present. Cervical body height and alignment are normal. Mild C5-6 disc space narrowing with large posterior en dplate spurs. There is borderline to mild central spinal stenosis present. No other disc space narrow ing. Severe facet joint degenerative change with left foraminal stenosis present at C4-5 with uncover tebral joint hypertrophy causing moderate left-side and more severe right-sided foraminal stenosis at C5-6. Advanced facet joint degenerative change at C7-T1. No fracture or acute bony abnormality. Nisha tral canal detail is inherently limited. No paraspinal mass or hematoma. IMPRESSION: Chronic ischemic and old lacunar type infarction changes in the bilateral basal ganglia and deep periventricular white matter of each frontal lobe. No hemorrhage or acute intracranial abnormality identifiable. Cervical spine degenerative changes are present as detailed including borderline to mild central spin al stenosis at C5-6. No acute cervical spine finding.
--- NOTE | 2022-09-24 16:02 | ER ---
Nurse's Notes [facility] Name: Liz Max Age: 62 yrs Sex: Female : 1960 Arrival Date: 09/24/2022 Time: 12:19 Bed 13 Private MD: Diagnosis: Sepsis without end organ dysfunction;Pyelonephritis acute;Renal Insufficiency Presentation: 09/24 12:21 Chief complaint: EMS states: toned out for "passing out", brother states she went limp jh5 and went backwards. denies pain to head, neck, back. AAOX4 for EMS, this has happened x3 times today, says pt has not been eating or drinking because she is stressed. Glucose of 223, cough and runny nose x2 weeks. Coronavirus screen: Vaccine status: Patient reports receiving the 2nd dose of the covid vaccine. Client denies travel out of the [place] in the last 14 days. Ebola Screen: Patient negative for fever greater than or equal to 101.5 degrees Fahrenheit, and additional compatible Ebola Virus Disease symptoms Patient denies exposure to infectious person. Patient denies travel to an Ebola-affected area in the 21 days before illness onset. Initial Sepsis Screen: Does the patient meet any 2 criteria? No. Patient's initial sepsis screen is negative. Does the patient have a suspected source of infection? No. Patient's initial sepsis screen is negative. Risk Assessment: Do you want to hurt yourself or someone else? Patient reports no desire to harm self or others. Onset of symptoms was September 22, 2022. 12:21 Method Of Arrival: EMS: [place] [id number] 12:21 Acuity: ANTON 3 jh5 Triage Assessment: 12:23 General: Appears comfortable, slender, well groomed, well developed, Behavior is calm, jh5 cooperative, appropriate for age. Pain: Denies pain. Historical: - Allergies: 21:01 No Known Allergies; ke1 - PMHx: 12:23 Chronic pain; Diabetes - NIDDM; Hypertension; jh5 - Immunization history:: Adult Immunizations up to date. - Social history:: Smoking status: Patient denies any tobacco usage or history of. Screenin:25 [facility] ED Fall Risk Assessment (Adult) History of falling in the last 3 months, jh5 including since admission No falls in past 3 months (0 pts) Confusion or Disorientation No (0 pts) Intoxicated or Sedated No (0 pts) Impaired Gait No (0 pts) Mobility Assist Device Used No (0 pt) Altered Elimination No (0 pt) Score/Fall Risk Level 0 - 2 = Low Risk. Abuse screen: Denies threats or abuse. Denies injuries from another. Nutritional screening: No deficits noted. Tuberculosis screening: No symptoms or risk factors identified. Assessment: 20:56 Reassessment: REPORT GIVEN TO ke1 Vital Signs: 12:21 BP 117 / 60; Pulse 90; Resp 16; Temp 98.6; Pulse Ox 100% ; Weight 68.04 kg; Height 5 [facility] ft. 9 in. (175.26 cm); Pain 0/10; 14:36 BP 116 / 68; Pulse 92; Resp 18; Temp 98.7; Pulse Ox 97% ; jh5 20:57 BP 122 / 78; Pulse 109; Resp 19; Temp 98.6; Pulse Ox 94% on R/A; Pain 0/10; ke1 12:21 Body Mass Index 22.15 (68.04 kg, 175.26 cm) [facility] ED Course: 12:19 Patient arrived in ED. 5 12:23 Triage completed. [facility] 12:23 Arm band placed on right wrist. [facility] 12:25 Patient has correct armband on for positive identification. Bed in low position. Call [facility] light in reach. Side rails up X 1. 12:25 No provider procedures requiring assistance completed. Maintain EMS IV. Gauge \\T\\ site: [facility] 22g left AC. 12:28 Rudy Dubois DO is Attending Physician. ms3 13:51 Chest Single View XRAY In Process Unspecified. EDMS 14:02 EKG done, by ED staff, reviewed by Rudy Dubois DO. mm9 14:03 Warm blanket given. monitoring manager on. Pulse ox on. NIBP on. mm9 14:23 CT Abd/Pelvis - IV Contrast Only In Process Unspecified. EDMS 14:23 CT Head C Spine In Process Unspecified. EDMS 15:55 Second set of blood cultures drawn by me. ss 16:00 Deshawn Gomez MD is Hospitalizing Provider. ms3 19:09 Omayra Petit, CARLITOS is Primary Nurse. ke1 20:57 Patient admitted, IV remains in place. ke1 Administered Medications: 16:05 Drug: Rocephin (cefTRIAXone) 1 grams Route: IV; Rate: calculated rate; Site: left [facility] antecubital; 18:09 Drug: NS 0.9% 1000 ml Route: IV; Rate: 1 bolus; Site: left antecubital; [facility] Medication: 12:27 VIS not applicable for this client. [facility] Outcome: 16:01 Decision to Hospitalize by Provider. ms3 20:57 Admitted to Med/surg accompanied by tech. ke1 20:57 Condition: stable 20:57 Instructed on the need for admit. 21:50 Patient left the ED. ke1 Signatures: Dispatcher [employer] EDMS Renetta Killian, RN RN Rudy Nielsen DO DO ms3 Alona Sheffield, CARLITOS URBINA 5 Omayra Petit RN RN ke1 Betty Donovan mm9
--- NOTE | 2022-09-24 16:02 | EDPHYS ---
Physician Documentation [facility] Name: Liz Max Age: 62 yrs Sex: Female : 1960 Arrival Date: 09/24/2022 Time: 12:19 Bed 13 Private MD: ED Physician Rudy Dubois HPI: 09/24 12:57 This 62 yrs old Female presents to ER via EMS with complaints of Syncope. ms3 12:57 . ms3 12:57 62-year-old female with past medical history of diabetes, hypertension, chronic pain ms3 presents via [facility] for dizziness, nausea, syncopal episode that occurred at 10:30 AM. On evaluation in the emergency department patient states she does not have any symptoms. Patient states her dizziness and nausea have resolved. Patient states at the time of the syncopal episode she did have a headache and was nauseated. Patient denies vomiting.. Historical: - Allergies: 21:01 No Known Allergies; ke1 - PMHx: 12:23 Chronic pain; Diabetes - NIDDM; Hypertension; jh5 - Immunization history:: Adult Immunizations up to date. - Social history:: Smoking status: Patient denies any tobacco usage or history of. ROS: 12:57 Constitutional: Negative for fever, and chills. Cardiovascular: Negative for chest ms3 pain, and palpitations. Respiratory: Negative for shortness of breath, cough, wheezing, and pleuritic chest pain. 12:57 Abdomen/GI: Positive for nausea. 12:57 Neuro: Positive for syncope. 12:57 All other systems are negative. Exam: 12:57 Constitutional: This is a well developed, well nourished patient who is awake, alert, ms3 and in no acute distress. Head/Face: Normocephalic, atraumatic. Neck: Trachea midline, no cervical lymphadenopathy. Supple, full range of motion without nuchal rigidity, or vertebral point tenderness. No Meningismus. Chest/axilla: Normal chest wall appearance and motion. Nontender with no deformity. Cardiovascular: Regular rate and rhythm with a normal S1 and S2. No gallops, murmurs, or rubs. Normal PMI, no JVD. No pulse deficits. Respiratory: Lungs have equal breath sounds bilaterally, clear to auscultation and percussion. No rales, rhonchi or wheezes noted. No increased work of breathing, no retractions or nasal flaring. 12:57 Abdomen/GI: Inspection: abdomen appears normal, Bowel sounds: normal, Palpation: moderate abdominal tenderness, in the left lower quadrant. 13:54 ECG was reviewed by the Attending Physician. ms3 Vital Signs: 12:21 BP 117 / 60; Pulse 90; Resp 16; Temp 98.6; Pulse Ox 100% ; Weight 68.04 kg; Height 5 jh5 ft. 9 in. (175.26 cm); Pain 0/10; 14:36 BP 116 / 68; Pulse 92; Resp 18; Temp 98.7; Pulse Ox 97% ; jh5 20:57 BP 122 / 78; Pulse 109; Resp 19; Temp 98.6; Pulse Ox 94% on R/A; Pain 0/10; ke1 12:21 Body Mass Index 22.15 (68.04 kg, 175.26 cm) jh5 MDM: 12:57 Patient medically screened. ms3 12:57 Differential Diagnosis: cardiac arrhythmia, seizure, vasovagal episode. ms3 16:01 Data reviewed: vital signs, nurses notes, lab test result(s), CBC, electrolytes, ms3 hepatic panel, EKG, radiologic studies, CT scan, and as a result, I will admit patient. Consideration of Admission/Observation Patient was admitted/placed on observation. Management of patient was discussed with the following: Hospitalist: Dr Gomez. I considered the following discharge prescriptions or medication management in the emergency department Medications were administered in the Emergency Department. See MAR. Independent interpretation of the following test(s) in the Emergency Department. Historians other than the Patient: EMS: . Spouse/Significant Other: , EMS. Counseling: I had a detailed discussion with the patient and/or guardian regarding: the historical points, exam findings, and any diagnostic results supporting the discharge/admit diagnosis, lab results, radiology results, the need for further work-up and treatment in the hospital. ED course: Patient remains in stable condition in the emergency department. Patient is aware of admission and agrees with plan.. 09/24 12:49 Order name: CBC with Diff; Complete Time: 14:33 ms3 09/24 12:49 Order name: CMP; Complete Time: 14:33 ms3 09/24 12:49 Order name: Lipase; Complete Time: 14:33 ms3 09/24 12:49 Order name: Urine Microscopic Only; Complete Time: 14:33 ms3 09/24 12:50 Order name: Magnesium; Complete Time: 14:33 ms3 09/24 12:50 Order name: Protime (+inr); Complete Time: 13:53 ms3 09/24 12:50 Order name: Ptt, Activated; Complete Time: 13:53 ms3 09/24 12:50 Order name: Troponin High Sensitivity; Complete Time: 14:33 ms3 09/24 13:41 Order name: Manual Differential; Complete Time: 14:33 EDMS 09/24 14:06 Order name: Urine Dipstick-Ancillary; Complete Time: 14:33 EDMS 09/24 14:15 Order name: Urine Culture EDMS 09/24 14:35 Order name: Blood Culture Adult (2) ms3 09/24 14:35 Order name: Lactate w/ 2H reflex if indic.; Complete Time: 15:55 ms3 09/24 15:11 Order name: Glucose, Ancillary Testing; Complete Time: 15:55 EDMS 09/24 12:49 Order name: CT Abd/Pelvis - IV Contrast Only; Complete Time: 14:55 ms3 09/24 12:49 Order name: IV Saline Lock; Complete Time: 13:17 ms3 09/24 12:49 Order name: Labs collected and sent; Complete Time: 13:17 ms3 09/24 12:49 Order name: Urine Dipstick-Ancillary (obtain specimen); Complete Time: 13:53 ms3 09/24 12:50 Order name: CT Head C Spine; Complete Time: 14:55 ms3 09/24 12:50 Order name: Chest Single View XRAY; Complete Time: 14:33 ms3 09/24 12:50 Order name: EKG; Complete Time: 12:51 ms3 09/24 12:50 Order name: Cardiac monitoring; Complete Time: 13:17 ms3 09/24 12:50 Order name: EKG - Nurse/Tech; Complete Time: 13:41 ms3 09/24 12:50 Order name: NPO; Complete Time: 13:17 ms3 09/24 12:50 Order name: O2 Per Protocol; Complete Time: 13:17 ms3 09/24 12:50 Order name: O2 Sat Monitoring; Complete Time: 13:17 ms3 09/24 17:51 Order name: SARS RAPID eb 09/24 14:35 Order name: Accucheck; Complete Time: 15:08 ms3 09/24 14:35 Order name: IV Saline Lock - Large Bore; Complete Time: 14:38 ms3 09/24 14:35 Order name: Vital Signs; Complete Time: 14:38 ms3 EC:54 Rate is 102 beats/min. Rhythm is regular. QRS [place] is Normal. IA interval is normal. ms3 QRS interval is normal. Clinical impression: Sinus tachycardia. Interpreted by me. Reviewed by me. Administered Medications: 16:05 Drug: Rocephin (cefTRIAXone) 1 grams Route: IV; Rate: calculated rate; Site: left [facility] antecubital; 18:09 Drug: NS 0.9% 1000 ml Route: IV; Rate: 1 bolus; Site: left antecubital; [facility] Disposition Summary: 09/24/22 16:01 Hospitalization Ordered Hospitalization Status: Inpatient Admission ms3 Provider: Deshawn Gomez ms3 Location: Telemetry/MedSur (Inpatient) ms3 Condition: Stable ms3 Problem: new ms3 Symptoms: are unchanged ms3 Bed/Room Type: Standard ms3 Room Assignment: 421(09/24/22 20:07) Diagnosis - Sepsis without end organ dysfunction ms3 - Pyelonephritis acute ms3 - Renal Insufficiency ms3 Forms: - Medication Reconciliation Form ms3 - SBAR form ms3 Critical care time excluding procedures: 16:02 Critical care time: Bedside Care: 30 minutes, Consultation: 10 minutes, Family ms3 Intervention: 10 minutes. Total time: 50 minutes Signatures: Dispatcher [employer] Remedios Farfan, RN Angelita Olmos RN RN Rudy Caballero DO DO ms3 Alona Sheffield RN RN jh5 Omayra Petit RN RN ke1 Corrections: (The following items were deleted from the chart) 12:52 12:51 Head Brain Wo Cont+CT.RAD.BRZ ordered. EDIN EDMS 20:07 16:01 ms3 cg
[2022-09-24] MEDS ORDERED: CEFTRIAXONE 1000 MG/VIAL ONE (16:04)
--- NOTE | 2022-09-24 18:01 | P.HP ---
Certification for Inpatient Patient admitted to: Inpatient With expected LOS: >2 Midnights Patient will require the following post-hospital care: None Practitioner: I am a practitioner with admitting privileges, knowledge of patient current condition, hospital course, and medical plan of care. Services: Services provided to patient in accordance with Admission requirements found in Title 42 Section 412.3 of the Code of Federal Regulations Patient History Date of Service: 09/24/22 Reason for admission: Sepsis, pyelonephritis History of Present Illness: 62-year-old female with history of lau-filnpro-xybwisnys diabetes, hypertension presents the emergency department for syncopal episode. She reports has been feeling unwell the past 1 week with urinary symptoms, chills, weakness today had an episode of nausea followed by syncope with collapse. She was evaluated here in the emergency department her labs are significant for leukocytosis with white blood cell count of 22 creatinine of 1.41 GFR 43 urinalysis 1+ leukoesterase 20-50 bacteria on microscopic evaluation greater than [address] abdomen pelvis with IV contrast was performed revealed pruriginous abnormal enhancement pattern of bilateral renal parenchyma, left greater than right suspicious for pyelonephritis. Urinary bladder is fully contracted precluding assessment of cystitis. CT head C-spine also performed there is negative for acute findings, chest x-ray negative for acute findings. Patient meets criteria for sepsis given leukocytosis, tachycardia and source of infection identified, pyelonephritis. Will admit for further evaluation and management of sepsis, pyelonephritis. Allergies No Known Allergies Allergy (Unverified 08/02/17 00:01) Home Medications: Metformin HCl 1,000 mg PO BIDWM 02/14/21 Potassium Gluconate [Potassium] 99 mg PO DAILY 02/14/21 Amox/Clavulanate [Augmentin 500-125 mg Tab*] 500 mg PO BID #10 tab 02/15/21 Aspirin [Aspirin EC 81 MG] 81 mg PO DAILY #30 tablet.dr 02/15/21 Atorvastatin Calcium [Lipitor] 10 mg PO BEDTIME #30 tab 02/15/21 Divalproex Sodium [Depakote ER] 250 mg PO DAILY #30 tab.er.24h 02/15/21 Folic Acid 1 mg PO DAILY #30 tablet 02/15/21 LORazepam [Ativan] 0.5 mg PO BEDTIME PRN #5 tab 02/15/21 hydroCHLOROthiazide [Hydrochlorothiazide] 25 mg PO DAILY #30 tablet 02/15/21 - Past Medical/Surgical History Diabetic: Yes -: Diabetes mellitus type 2 -: Hypertension -: Restless leg syndrome -: Chronic pain -: Hysterectomy 2005 -: Lithotripsy Psychosocial/ Personal History: Patient is - Family History Father -: Diabetes, Other (see notes) Notes: Mesothelioma - Mother -: Seizures, Other (see notes) Notes: Lupus, Rheumatoid arthritis, Dementia - Social History Smoking Status: Current every day smoker Counseled patient to stop smoking for: less than 10 minutes Smoking therapy provided: No (Patient declined) Alcohol use: No CD- Drugs: No Caffeine use: Yes Place of Residence: Home Review of Systems 10-point ROS is otherwise unremarkable Gastrointestinal: Nausea, Abdominal Pain Musculoskeletal: Back Pain Physical Examination - Physical Exam General: Alert, In no apparent distress, Oriented x3 HEENT: Atraumatic, PERRLA, Mucous membr. moist/pink, EOMI, Sclerae nonicteric Neck: Supple, 2+ carotid pulse no bruit, No LAD, Without JVD or thyroid abnormality Respiratory: Clear to auscultation bilaterally, Normal air movement Cardiovascular: Regular rate/rhythm, Normal S1 S2 Capillary refill: <2 Seconds Gastrointestinal: Normal bowel sounds, Tenderness (Mild lower abdominal tenderness, mild CVA tenderness greater on left) Musculoskeletal: No tenderness Integumentary: No rashes Neurological: Normal speech, Normal strength at 5/5 x4 extr, Normal tone, Normal affect - Studies Laboratory Data (last 24 hrs) 09/24/22 13:13: PT 13.3 H, INR 1.21, APTT 22.6 L 09/24/22 13:13: Sodium 135 L, Potassium 3.7, BUN 14, Creatinine 1.41 H, Glucose 235 H, Magnesium 1.6, Total Bilirubin 0.7, AST 8 L, ALT < 10 L, Alkaline Phosphatase 48, Lipase 37 L 09/24/22 13:13: WBC 22.00 H*, Hgb 13.0, Hct 37.7, Plt Count 169 Assessment and Plan - Plan Assessment: Sepsis secondary to pyelonephritis diabetes mellitus type [id number]-auloakm-oznetwmaz with hyperglycemia Hypertension Plan: Sepsis secondary to pyelonephritis Blood cultures obtained in the emergency department, continue IV antibiotics/Rocephin. Follow blood/urine cultures. Clear liquid diet, advance as tolerated. No severe sepsis or septic shock. Diabetes mellitus type [id number] with hyperglycemia Takes metformin, mild sliding scale insulin ordered, A1c in the morning. Hypertension Hold antihypertensives in setting of sepsis, restart when appropriate. Patient takes hydrochlorothiazide. DVT PPX: Lovenox Code status:full Discharge Plan: Home Plan to discharge in: 48 Hours - Advance Directives Does patient have a Living Will: No Does patient have a Durable POA for Healthcare: No - Code Status/Comfort Care Code Status Assessed: Yes (Full code) Critical Care: No Time Spent Managing Pts Care (In Minutes): 55
[2022-09-24 18:19] LABS: SARS-CoV-2 Antigen Rapid Res Negative (Negative)
[2022-09-24] MEDS: INSULIN -REGULAR HUMAN 50 UNIT/0.5 ML ML SQ SCH (21:48)
[2022-09-24] MEDS ORDERED: MORPHINE 2 MG/ML SYR IV PRN (21:48)
[2022-09-24] MEDS ORDERED: ONDANSETRON 4 MG/2 ML VIAL IV PRN (21:48)
[2022-09-24] MEDS ORDERED: ACETAMINOPHEN 500 MG TAB PO PRN (21:48)
[2022-09-24] MEDS: TRAMADOL HCL 50 MG TAB PO PRN (22:12)
[2022-09-24] MEDS: Ringers Lactate 1,000 ML IV SCH (22:13)
[2022-09-24 22:42] VITALS: BMI 26.1
[2022-09-25 03:43] LABS: Absolute Lymphocytes (CBC) 0.9 K/uL (0.7-4.9); Hematocrit 38.7 % (36.0-45.0); Lymphocytes % 3.7 % (15.3-44.8); MPV 10.2 fL (7.6-11.3); RBC Red Blood Cell Count 4.39 M/uL (3.86-4.86)
[2022-09-25 04:01] LABS: Potassium 3.3 mmol/L (3.5-5.1)
--- NOTE | 2022-09-25 04:35 | P.PN ---
Date of Service: 09/25/22 Patient will be scheduled for severe sepsis given acute kidney injury, creatinine greater than 2, also noted the patient's white blood cell count has increased this morning despite treatment with Rocephin, notified by lab that 3/4 culture bottles are positive, Gram stain not yet performed. Patient abx broadened to merrem given her worsening in condition, severe sepsis, bacteremia.
[2022-09-25] MEDS: Meropenem 1,000 MG in NA CHLORIDE 0.9% 100 ML IV SCH ×3 (05:00→20:28)
[2022-09-25] MEDS: Ringers Lactate 1,000 ML IV SCH ×3 (05:38→23:11)
[2022-09-25] MEDS: ENOXAPARIN 40 MG/0.4 ML SQ SCH (08:54)
[2022-09-25] MEDS: INSULIN -REGULAR HUMAN 50 UNIT/0.5 ML ML SQ SCH ×4 (08:55→20:52)
[2022-09-25] MEDS ORDERED: POTASSIUM CL SA 10 MEQ TAB PO ONE (09:00)
[2022-09-25] MEDS ORDERED: CEFTRIAXONE 2,000 MG in NA CHLORIDE 0.9% 100 ML IV SCH (09:00)
[2022-09-25] MEDS: TRAMADOL HCL 50 MG TAB PO PRN (20:27)
--- NOTE | 2022-09-25 23:00 | P.PN ---
Date of Service: 09/25/22 Subjective: mild improvement continues with pain, slight nausea reports several months of dialy urge incontinence ROS: A complete review of systems was performed and is negative except as mentioned above Physical Exam: Gen: NAD, AOx3 HEENT: normal conjunctiva, sclera anicteric CV: regular rate & rhythm, no edema Pulm: non-labored respirations, clear bilaterally Abd: soft, mild suprapubic tenderness, b/l CVA tenderness L>R Skin: no rashes, no lesions Neuro: normal speech, normal affect, moves all extremities vitals reviewed Problem List Sepsis secondary to b/lpyelonephritis diabetes mellitus type 9kux-afnnpsr-lmaoqosqq with hyperglycemia Hypertension urge incontinence blood cultures obtained in ED urine culture pending worsening leukocytosis and renal function, rocephin changed to merrem advance diet as tolerated slidign scale insulin nausea medication and pain medication as needed urge incontinence for several months would benefit from outpatient f/u with urology VTE: lovenox Code: full Dispo: home, ~3 days
[2022-09-26 03:18] LABS: Absolute Lymphocytes (CBC) 0.6 K/uL (0.7-4.9); Hematocrit 36.1 % (36.0-45.0); Lymphocytes % 4.7 % (15.3-44.8); MCV 87.5 fL (80-100); RBC Red Blood Cell Count 4.13 M/uL (3.86-4.86)
[2022-09-26 03:31] LABS: Potassium 3.9 mmol/L (3.5-5.1)
[2022-09-26] MEDS: TRAMADOL HCL 50 MG TAB PO PRN ×2 (04:37→20:43)
[2022-09-26] MEDS: Meropenem 1,000 MG in NA CHLORIDE 0.9% 100 ML IV SCH ×3 (04:38→20:44)
[2022-09-26] MEDS: Ringers Lactate 1,000 ML IV SCH ×2 (07:16→13:01)
--- NOTE | 2022-09-26 07:44 | P.PN ---
Date of Service: 09/26/22 Subjective: slight improvement - in pain/nausea, overall feeling but continues with moderate symptoms still leukocytosis improving ROS: A complete review of systems was performed and is negative except as mentioned above Physical Exam: Gen: NAD, AOx3 HEENT: normal conjunctiva, sclera anicteric CV: regular rate & rhythm, no edema Pulm: non-labored respirations, clear bilaterally Abd: soft, mild suprapubic tenderness, b/l CVA tenderness L>R Neuro: normal speech, normal affect, moves all extremities vitals reviewed Problem List Sepsis secondary to b/lpyelonephritis diabetes mellitus type 3jzw-xnruiac-guzjaturg with hyperglycemia Hypertension urge incontinence blood cultures obtained in ED urine culture pending - GNR 4+ worsening leukocytosis and renal function, rocephin changed to merrem on 09/25, leukocytosis significantly improved advance diet as tolerated slidign scale insulin nausea medication and pain medication as needed urge incontinence for several months would benefit from outpatient f/u with urology VTE: lovenox Code: full Dispo: home, ~1-2 days
[2022-09-26] MEDS: INSULIN -REGULAR HUMAN 50 UNIT/0.5 ML ML SQ SCH ×4 (08:50→21:00)
[2022-09-26] MEDS: ENOXAPARIN 40 MG/0.4 ML SQ SCH (08:51)
[2022-09-26] MEDS ORDERED: TRAMADOL HCL 50 MG TAB PO ONE (20:49)
--- NOTE | 2022-09-26 21:12 | PN ---
Date of Progress Note: 09/26/2022 Subjective: The patient was seen and examined at bedside. She is doing much better. Denies any com plaints. Greene catheter was placed. Good urine output was noted. Laboratory data at this time was showing improving leukocytosis. Renal function improving to 1.4. Other electrolytes are stable. Ur ine cultures are showing evidence of E coli, which is pansensitive. Current medications have been re viewed. Impression: 1.Acute renal failure, likely secondary to acute tubular necrosis. 2.Pyelonephritis, currently on antibiotics with meropenem. Urine cultures are showing Escherichia c arias. Can possibly deescalate antibiotics tomorrow once leukocytosis continues to improve. 3.Hypertension. We will go ahead and discontinue Ringer's Lactate at this time and monitor labs gisela sely. 4.History of chronic urinary tract infections with possible urge incontinence. She may have had kamran e component of urinary retention. She has had Greene catheter placed yesterday with significant urine output. We will possibly discontinue the Greene catheter tomorrow and monitor her urine output close ly. Plan: Overall, the patient's renal function is stable. Discontinue IV fluids. Discontinue Greene ca theter tomorrow. Deescalate antibiotics tomorrow if the leukocytosis continues to improve and we kanu fitzgerald follow up. KAILEE/CHRISTINA Voice ID: [id number] Report ID: [id number]
[2022-09-27 03:47] LABS: Absolute Lymphocytes (CBC) 0.8 K/uL (0.7-4.9); Hematocrit 30.6 % (36.0-45.0); Lymphocytes % 9.3 % (15.3-44.8); MCV 87.6 fL (80-100); MPV 9.5 fL (7.6-11.3); RBC Red Blood Cell Count 3.49 M/uL (3.86-4.86)
[2022-09-27] MEDS: Meropenem 1,000 MG in NA CHLORIDE 0.9% 100 ML IV SCH (05:00)
[2022-09-27] MEDS: INSULIN -REGULAR HUMAN 50 UNIT/0.5 ML ML SQ SCH ×4 (07:30→20:30)
[2022-09-27] MEDS ORDERED: TRAMADOL HCL 50 MG TAB PO PRN (07:31)
[2022-09-27] MEDS: Levofloxacin 750mg IV 750 MG/150 ML BAG IV SCH (07:58)
[2022-09-27] MEDS: ENOXAPARIN 40 MG/0.4 ML SQ SCH (07:58)
--- NOTE | 2022-09-27 08:03 | CON ---
Date of Consultation: 09/25/2022 Reason For Admission: Acute on chronic renal insuffiencey. History Of Present Illness: Ms. Max is a 62-year-old female with a past medical history significa nt for history of rup-qltruei-fkpkagwuz diabetes and hypertension, presented to the emergency room af ter she had a syncopal episode. The patient has been feeling unwell for the past 1 week prior to adm ission with some urinary symptoms, chills, weakness, and had an episode of nausea followed by syncope and collapse. She was evaluated in the emergency room and she was found to have significant leukocy tosis with a WBC count of 22,000 with creatinine of 1.01 and urinalysis consistent with urinary tract infection. Her creatinine has increased to 2 this morning and Nephrology consult was obtained for f urther evaluation. The patient had a CT scan done for further evaluation of her urinary tract infection and syncope and it showed abnormal enhancement pattern of bilateral renal parenchyma, left greater than rig ht suspicious for pyelonephritis, bladder was very contracted . She also had a CT of the C -spine performed, which was negative for any acute findings. The patient states that she continues t o feel depressed at times and is concerned about her renal function. Past Medical History: Significant for history of type 2 diabetes, hypertension, restless legs syndro me, chronic pain, history of hysterectomy, history of lithotripsy. No history of any chronic kidney disease. Family History: Significant for father with history . Social History: She is an everyday smoker. Denies any alcohol or other drug use. Review of Systems: Positive for nausea, weakness, vomiting, urge incontinence with . She denies any fevers or chills. Denies any nausea, vomiting, or diarrhea. All other review of systems are negative. She d enies any anxiety. Physical Examination: Vital Signs: At this time are showing temperature 99.1, pulse rate of 97, respiratory rate of 17, an d blood pressure 118/53. General: She appears in no acute distress. HEENT: Atraumatic head. Lungs: Clear to auscultation. Heart: Auscultation of the heart revealed regular rate and rhythm. Neurologic: She is alert, awake, oriented x3. No focal motor neurological deficits were noted. Abdomen: Nontender. CVA tenderness is noted . Extremities: Showed no evidence of edema. Laboratory Data: At this time are showing creatinine of 3.09, sodium of 134, and potassium of 3.3, c hloride was 99. CBC shows WBC per hour. She is getting meropenem 1000 mg every 8 hours, morphine p.r.n. for pain Impression: 1.Acute renal failure, likely secondary to acute kidney injury . Plan: Overall the patient is doing well. Even though she is quite septic in terms of her labs, clin ically she looks better. She does not have any hypotension. Avoid metformin VV/MODL Voice ID: [id number] Report ID: [id number]
--- NOTE | 2022-09-27 12:30 | P.PN ---
Nephrology note (S) Delayed entry note, pt seen this AM, denied any back or flank pain, no nausea, kaur remains in place (O) Vitals reviewed in the EMR Gen: NAD, non tachypnec HEENT: normal conjunctiva, sclera anicteric CV: regular rate & rhythm, no edema Resp: non-labored respirations, non tachypnec clear bilaterally Abd: soft, ND, NT Ext: shins are non tender Neuro: normal speech, normal affect, moves all extremities A/P) 1. Stage 1 CLAIRE in the setting of complicated UTI/pyelo, pre-renal state, other. Cr level has downward trended, cont to monitor. Pt has good UOP. Off IVF, but will restart if pt having persistent post CLAIRE auto-diuresis 2. Pyelonephritis 2nd to Escherichia coli. Ecoli bacteremia, sepsis without shock 2nd to urinary source. Abx management per primary team, in light of bacteremia, will need longer course but improving and WBC has normalized. 3. Hypertension, underlying, chronic -trend for now, cont to hold HCTZ 4. Calculus of kidney -likely the nidus for infection/pyelo, recommend pt see Urology as OP to review. Nikolay Fong MD, [facility]
--- NOTE | 2022-09-27 17:01 | EKG ---
Test Date: 2022-09-24 Test Time: 13:30:08 Student Advisor: KOURTNEY MEASUREMENT RESULTS: Intervals: Rate: 102 CA: 120 QRSD: 80 QT: 364 QTc: 474 Levasy: P: 17 CA: 120 QRS: -6 T: 42 INTERPRETIVE STATEMENTS: Sinus tachycardia Otherwise normal ECG Compared to ECG 08/01/2017 23:13:31 Sinus rhythm no longer present Prolonged QT interval no longer present Electronically Signed On 09-27-22 16:56:26 [employer] by Yeyo Mejia
--- NOTE | 2022-09-27 22:34 | P.PN ---
Date of Service: 09/27/22 Subjective: improving pain improved, no nausea/vomiting kaur remains afebrile ROS: A complete review of systems was performed and is negative except as mentioned above Physical Exam: Gen: NAD, AOx3 HEENT: normal conjunctiva, sclera anicteric CV: regular rate & rhythm, no edema Pulm: non-labored respirations, clear bilaterally Abd: soft, minimal suprapubic tenderness, mild b/l CVA tenderness L>R Neuro: normal speech, normal affect, moves all extremities kaur in place vitals reviewed Problem List Sepsis secondary to b/lpyelonephritis diabetes mellitus type [id number]-[id number]-agaqhzsix with hyperglycemia Hypertension urge incontinence b/l nonobstructing calyx calculi blood cultures obtained in ED urine & blood cultures: e.coli worsening leukocytosis and renal function, rocephin changed to merrem on 09/25, leukocytosis significantly improved advance diet as tolerated sliding scale insulin nausea medication and pain medication as needed dc kaur, check PVR; repeat BMP in AM urge incontinence for several months would benefit from outpatient f/u with urology VTE: lovenox Code: full Dispo: home, tomorrow pending improvement/stability of renal function, afebrile f/u urology as outpatient
[2022-09-28 06:51] LABS: Potassium 3.5 mmol/L (3.5-5.1)
[2022-09-28] MEDS ORDERED: POTASSIUM CL SA 10 MEQ TAB PO ONE (07:15)
[2022-09-28] MEDS: INSULIN -REGULAR HUMAN 50 UNIT/0.5 ML ML SQ SCH ×2 (07:30→11:30)
[2022-09-28] MEDS: Levofloxacin 750mg IV 750 MG/150 ML BAG IV SCH (07:44)
[2022-09-28] MEDS: ENOXAPARIN 40 MG/0.4 ML SQ SCH (07:44)
--- NOTE | 2022-09-28 11:02 | P.CNS ---
Chief Complaint: Sepsis, pyelonephritis History of Present Illness: 62-year-old female with history of vyt-sxqeqib-mihjjadth diabetes, hypertension presents the emergency department for syncopal episode. She reports has been feeling unwell the past 1 week with urinary symptoms, chills, weakness today had an episode of nausea followed by syncope with collapse. She was evaluated here in the emergency department her labs are significant for leukocytosis with white blood cell count of 22 creatinine of 1.41 GFR 43 urinalysis 1+ leukoesterase 20-50 bacteria on microscopic evaluation greater than [address] abdomen pelvis with IV contrast was performed revealed pruriginous abnormal enhancement pattern of bilateral renal parenchyma, left greater than right suspicious for pyelonephritis. Urinary bladder is fully contracted precluding assessment of cystitis. CT head C-spine also performed there is negative for ac juan findings, chest x-ray negative for acute findings. Patient meets criteria for sepsis given leukocytosis, tachycardia and source of infection identified, pyelonephritis. Will admit for further evaluation and management of sepsis, pyelonephritis. Patient has E. Coli bacteremia and UTI. ID has been consulted for IV antibiotics recommendation and management Allergies No Known Allergies Allergy (Unverified 08/02/17 00:01) Home Medications: Metformin HCl 500 mg PO TID 02/14/21 Potassium Gluconate [Potassium] 99 mg PO DAILY 02/14/21 Tramadol HCl [Ultram] 50 mg PO BID PRN 09/25/22 Lactobacillus Acidophilus [Acidophilus] 1 each PO BID #60 cap 09/28/22 hydroCHLOROthiazide [Hydrochlorothiazide] 12.5 mg PO DAILY #30 tab 09/28/22 levoFLOXacin [Levaquin] 750 mg PO DAILY #24 tab 09/28/22 - Past Medical/Surgical History Diabetic: Yes -: Diabetes mellitus type 2 -: Hypertension -: Restless leg syndrome -: Chronic pain -: Hysterectomy 2006 -: Lithotripsy Psychosocial/ Personal History: Patient is - Family History Father Medical History: Diabetes, Other (see notes) Notes: Mesothelioma - Mother Medical History: Seizures, Other (see notes) Notes: Lupus, Rheumatoid arthritis, Dementia - Social History Smoking Status: Current some day smoker Alcohol use: No CD- Drugs: No Caffeine use: Yes Place of Residence: Home Physical Examination Temp Pulse Resp BP Pulse Ox 96.8 F 74 16 127/68 96 09/28/22 08:00 09/28/22 08:00 09/28/22 08:00 09/28/22 08:00 09/28/22 08:00 General: Alert, In no apparent distress, Oriented x3 Respiratory: Clear to auscultation bilaterally Cardiovascular: No edema, Normal S1 S2 Gastrointestinal: Normal bowel sounds Musculoskeletal: No swelling, No contractures, No erythema Integumentary: No rashes, No breakdown Neurological: Normal speech, Normal tone, Normal affect Acetaminophen (Acetaminophen 500 Mg Tab) 500 mg PO Q4HP PRN PRN Reason: TEMP > 100' F Last Admin: 09/25/22 20:27 Dose: 500 mg Enoxaparin Sodium (Enoxaparin 40 Mg/0.4 Ml) 40 mg SQ DAILY [facility] Last Admin: 09/28/22 07:44 Dose: 40 mg Levofloxacin/Dextrose (Levaquin 750 Mg/150 Ml Ivpb (Premix)) 750 mg in 150 mls @ 100 mls/hr IV Q24H [facility]; Protocol Last Admin: 09/28/22 07:44 Dose: 150 mls Insulin Human Regular (Insulin -Regular Human 50 Unit/0.5 Ml Ml) 0 unit SQ ACHS [facility]; Protocol Last Admin: 09/28/22 07:30 Dose: Not Given Morphine Sulfate (Morphine 2 Mg/Ml Syr) 2 mg IV Q6H PRN PRN Reason: Pain scale 5-7 (Moderate) Ondansetron HCl (Ondansetron 4 Mg/2 Ml Vial) 4 mg IV Q6HP PRN PRN Reason: NAUSEA / VOMITING Sodium Chloride (Flush Normal Saline 10 Ml) 10 ml IV BID [facility] Last Admin: 09/28/22 07:50 Dose: 10 ml Tramadol HCl (Tramadol Hcl 50 Mg Tab) 100 mg PO BEDTIME PRN PRN Reason: Pain scale 5-7 (Moderate) Last Admin: 09/27/22 20:29 Dose: 100 mg Microbiology 09/24/22 15:44 Blood - Blood Aerobic Blood Culture - Final Escherichia Coli 09/24/22 15:44 Blood - Blood Blood Culture Gram Stain - Final 09/24/22 15:44 Blood - Blood Anaerobic Blood Culture - Final Escherichia Coli 09/24/22 15:44 Blood - Blood Gram Stain - Final 09/24/22 14:58 Blood - Blood Aerobic Blood Culture - Final Escherichia Coli 09/24/22 14:58 Blood - Blood Blood Culture Gram Stain - Final 09/24/22 14:58 Blood - Blood Anaerobic Blood Culture - Final Escherichia Coli 09/24/22 14:58 Blood - Blood Gram Stain - Final 09/24/22 13:55 Clean Catch Urine [place] Count - Final >100,000 CFU/ML. 09/24/22 13:55 Clean Catch Urine - Final Escherichia Coli Imagings Data: CT - Abdomen Pelvis W Contrast - 09/24/2022: IMPRESSION: Heterogeneous, abnormal enhancement pattern of the bilateral renal parenchyma, left greater than right, suspicious for pyelonephritis. Perfusion abnormalities due to vascular compromise would be a lesser consideration. Correlation is needed with any clinical or laboratory findings for pyelonephritis. Urinary bladder is fully contracted precluding assessment of cystitis. Uterus and ovaries appear to be absent. No acute [employer] or GI process identifiable. RAD - Chest Single View - 09/24/2022: IMPRESSION: No acute cardiopulmonary process CT - [id number] - 09/24/2022: IMPRESSION: Chronic ischemic and old lacunar type infarction changes in the bilateral basal ganglia and deep periventricular white matter of each frontal lobe. No hemorrhage or acute intracranial abnormality identifiable. Cervical spine degenerative changes are present as detailed including borderline to mild central spinal stenosis at C5-6. No acute cervical spine finding - Problems (1) Bacteremia Current Visit: Yes Status: Acute Plan: Cultures: 09/24 UC: E. Coli 09/24 BC: E. Coli (12/07) Antibiotics: Current on IV Levofloxacin, 09/27 Recommendation: - Continue IV Levofloxacin for 2 weeks duration and PO for two more weeks - total of 4 weeks of antibiotics (bilateral pyelonephritis, bacteremia, and UTI) (2) UTI (urinary tract infection) Current Visit: Yes Status: Acute Plan: Treatment same as Bacteremia (3) Acute pyelonephritis Current Visit: No Status: Acute Plan: Treatment same as Bacteremia Conclusions/Impression: - Bacteremia - Acute pyelonephritis, bilateral - UTI - Diabetes mellitus type 2 - Hypertension - Restless leg syndrome - Chronic pain - Hysterectomy 2006 - Lithotripsy ID will monitor the patient closely for signs of infection with fever and WBC trends Case has been discussed with Rhona Rausch Thank you Dr. Arauz for consult
--- NOTE | 2022-09-28 13:30 | P.DS ---
Admission Date: 09/24/22 Discharge Date: 09/28/22 Disposition: ROUTINE DISCHARGE Discharge Condition: GOOD Reason for Admission: Sepsis, pyelonephritis Brief History of Present Illness: 62-year-old female with history of elt-mogbjkd-oencgzmvb diabetes, hypertension presented to the emergency department for syncopal episode. She reported has been feeling unwell for 1 week with urinary symptoms, chills, weakness today had an episode of nausea followed by syncope with collapse. She was evaluated here in the emergency department her labs were significant for leukocytosis with white blood cell count of 22 creatinine of 1.41 GFR 43 urinalysis 1+ leukoesterase 20-50 bacteria on microscopic evaluation greater than [address] abdomen pelvis with IV contrast was performed revealed abnormal enhancement pattern of bilateral renal parenchyma, left greater than right suspicious for pyelonephritis. Urinary bladder fully contracted precluding assessment of cystitis. CT head, C-spine also performed there is negative for acute findings, chest x-ray negative for acute findings. Patient met criteria for sepsis given leukocytosis, tachycardia and source of infection identified as pyelonephritis. Patient admitted for further management. Hospital Course: Diagnosis Sepsis secondary to b/l pyelonephritis diabetes mellitus type 8rmd-ckvubou-mavjpuixv with hyperglycemia Hypertension urge incontinence Bilateral nonobstructing calyx calculi Patient admitted to the medical floor and started on aggressive antibiotic therapy with IV Rocephin, later changed to IV merrem due to worseing leukocytosis. blood cultures and urine culture grew pansensitive E. coli. Patient seen in consultation by infectious disease Leukocytosis resolved, sepsis resolved, patient's symptoms improved and patient tolerated diet. She was seen by infectious disease, antibiotics later scaled down to IV Levaquin. Patient tolerated diet. sliding scale insulin Had Kaur catheter which was discontinued.dc kaur. She reported urge incontinence for several months and recommended outpatient follow-up with urology. Patient overall has clinically improved, She has been afebrile, tolerating diet and ambulatory. She is deemed stable for discharge. Infectious disease recommend 4 weeks of oral Levaquin. Vital Signs/Physical Exam: Temp Pulse Resp BP Pulse Ox 97 F 72 16 131/78 97 09/28/22 12:00 09/28/22 12:00 09/28/22 12:00 09/28/22 12:00 09/28/22 12:00 General: Alert, In no apparent distress, Oriented x3 HEENT: Mucous membr. moist/pink Neck: JVD not distended Respiratory: Clear to auscultation bilaterally, Normal air movement Cardiovascular: Regular rate/rhythm, Normal S1 S2 Gastrointestinal: Normal bowel sounds, Soft and benign, Non-distended, No tenderness Musculoskeletal: No swelling Integumentary: No rashes, No cyanosis Neurological: Normal strength at 5/5 x4 extr Lymphatics: No axilla or inguinal lymphadenopathy Laboratory Data at Discharge: WBC 8.80 K/uL (4.3-10.9) 09/27/22 03:08 Hgb 10.7 g/dL (12.0-15.0) L D 09/27/22 03:08 Hct 30.6 % (36.0-45.0) L 09/27/22 03:08 Plt Count 134 K/uL (152-406) L 09/27/22 03:08 PT 13.3 SECONDS (9.5-12.5) H 09/24/22 13:13 INR 1.21 09/24/22 13:13 APTT 22.6 SECONDS (24.3-36.9) L 09/24/22 13:13 Sodium 136 mmol/L (136-145) 09/28/22 06:16 Potassium 3.5 mmol/L (3.5-5.1) 09/28/22 06:16 BUN 16 mg/dL (7-18) 09/28/22 06:16 Creatinine 0.98 mg/dL (0.55-1.02) 09/28/22 06:16 Glucose 178 mg/dL (74-106) H 09/28/22 06:16 Magnesium 1.6 mg/dL (1.6-2.4) 09/24/22 13:13 Total Bilirubin 0.7 mg/dL (0.2-1.0) 09/24/22 13:13 AST 8 U/L (15-37) L 09/24/22 13:13 ALT < 10 U/L (13-56) L 09/24/22 13:13 Alkaline Phosphatase 48 U/L (45-117) 09/24/22 13:13 Lipase 37 U/L (73-393) L 09/24/22 13:13 Home Medications: Metformin HCl 500 mg PO TID 02/14/21 Potassium Gluconate [Potassium] 99 mg PO DAILY 02/14/21 Tramadol HCl [Ultram] 50 mg PO BID PRN 09/25/22 Lactobacillus Acidophilus [Acidophilus] 1 each PO BID #60 cap 09/28/22 hydroCHLOROthiazide [Hydrochlorothiazide] 12.5 mg PO DAILY #30 tab 09/28/22 levoFLOXacin [Levaquin] 750 mg PO DAILY #24 tab 09/28/22 New Medications: Lactobacillus Acidophilus [Acidophilus] 1 each PO BID #60 cap hydroCHLOROthiazide [Hydrochlorothiazide] 12.5 mg PO DAILY #30 tab levoFLOXacin [Levaquin] 750 mg PO DAILY #24 tab Physician Discharge Instructions: Patient was found to have bilateral pyelonephritis with CLAIRE, secondary to E .coli, with e.coli bacteremia. She had significant improvement of her symptoms, leukocytosis resolved, afebrile > 24hrs. Cultures grew e.coli, sensitivities reviewed. A kaur catheter was placed temporarily to monitor I/Os. Kidney function returned to normal. Patient discharged with 24 more days of antibiotic - levaquin, to complete 4 weeks total. Recommended to follow up with a Urologist. She reports some urinary incontinence over the last several months which increases her risk for UTI. Resume home medications as previously prescribed. Follow up: PCP within 1 week Nephrology - 2-3 weeks. Diet: AHA Activity: Ad juan Followup: NONE,NONE [Primary Care Provider] - Time spent managing pt's care (in minutes): 36
[2022-09-28 16:05] VITALS: BP 164/91; TEMP 97.9
[2022-09-28 16:20] VITALS: O2SAT 98
== END 2022-09-28 16:00 | disposition home or self-care (01) | DRG 872 ==
LOC: ER 12:16 → ERHOLD 17:51 → 4TH 21:32
PROVIDERS: ADMIT Hospitalist; ATTEND Internal Medicine
DX: A41.51 Sepsis due to Escherichia coli [E. coli] (principal); N17.9 Acute kidney failure, unspecified; N13.6 Pyonephrosis; R65.20 Severe sepsis without septic shock; E11.65 Type 2 diabetes mellitus with hyperglycemia; I10 Essential (primary) hypertension; N39.41 Urge incontinence; G25.81 Restless legs syndrome; G89.29 Other chronic pain; F17.200 Nicotine dependence, unspecified, uncomplicated; F03.90 Unspecified dementia, unspecified severity, without behavioral disturbance, psychotic disturbance, mood disturbance, and anxiety; Z79.84 Long term (current) use of oral hypoglycemic drugs; Z79.82 Long term (current) use of aspirin; Z79.899 Other long term (current) drug therapy; Z90.710 Acquired absence of both cervix and uterus; Z20.822 Contact with and (suspected) exposure to COVID-19
CPT/HCPCS: 36415; 70450; 71045; 72125; 74177; 80048; 80053; 81003; 81015; 82947; 83036; 83605; 83690; 83735; 84484; 85025; 85610; 85730; 87040; 87077; 87086; 87088; 87186; 87205; 87811; 93005; 96374; 99285; J1650; J1815; J2185; J7120; Q9967